=== PATIENT | male | born 1995 | race Two or more races ===

== ENCOUNTER 2021-10-26 14:16 | Emergency (ER) | payer OTHER, SELFPAY ==
[2021-10-26 14:30] VITALS: BP 118/80; PULSE 98; RESP 18; TEMP 36.8; O2SAT 99; BMI 25.0
--- NOTE | 2021-10-26 15:49 | ED.DENTAL ---
HPI - Dental/Oral General Chief complaint: Dental/Oral Stated complaint: Dental pain Time Seen by Provider: 10/26/21 15:22 Source: patient Mode of arrival: ambulatory History of Present Illness HPI Narrative: 26-year-old male no significant past medical history presenting to the ED complaining of right lower was in to pain x2 days. Reports associated swelling. Denies fever, chills, drainage from area, difficulty/inability to swallow, ear pain, sore throat MD Complaint: tooth pain Onset (ago): day(s) Related Data Previous Rx's Medication Instructions Recorded amoxicillin 875 mg-potassium 1 tab PO Q12H 7 Days #14 tab 10/26/21 clavulanate 125 mg tablet (Augmentin) Allergies Allergy/AdvReac Type Severity Reaction Status Date / Time No Known Allergies Allergy Verified 10/26/21 14:30 Review of Systems Review of Systems: Constitutional: No Fever, No Chills ENT/Mouth: No Ear Pain, No Nasal Congestion, No Hoarseness, No sore throat, No Rhinorrhea, No Swallowing Difficulty, +dental pain Cardiovascular: No Chest Pain, No SOB Respiratory: No Cough Gastrointestinal: No Nausea, No Vomiting, No Diarrhea, No Constipation, No Abdominal pain Genitourinary: No Hematuria, No Urinary Incontinence, No Urgency, No Flank Pain Musculoskeletal: No joint pain, No Myalgias, No Joint Swelling Skin: No Skin Lesions, No rash Neuro: No Weakness, No Numbness, No Paresthesias Yes all other systems are reviewed and are negative [facility] Past Medical History Attestation statement: The following information was validated with the patient. Medical History Asthma Social History Social History Advance Directives: No Advance Directives Information Provided: Yes Physical Exam Vital Signs: Vital Signs: Last Vital Signs Temp 98.3 F 10/26/21 14:30 Pulse 98 10/26/21 14:30 Resp 18 10/26/21 14:30 BP 118/80 10/26/21 14:30 Pulse Ox 99 10/26/21 14:30 BMI result Body Mass Index 25.0 Const: General: cooperative, healthy appearing and no acute distress Orientation/consciousness: patient oriented x3 Limitations: no limitations HENMT: Other: + right lower 3rd molar with abscess with +fluctuation. No induration. No evidence of cellulitis. No drainage Head: Yes normal to inspection Ears: hearing grossly normal bilaterally, external ears normal, TM's normal bilaterally and mastoids normal General nose exam: Normal external nose present Face and sinus: Yes normal facial exam Mouth: Normal oral and palatal mucosa present Throat: Yes posterior oropharynx normal, Yes tonsils normal, Yes uvula midline and No abnormal tonsil Eyes: General: appearance normal, both eyes and all related structures EOM: EOMs intact bilaterally Neck: Neck: Yes normal visual inspection, Yes trachea midline and Yes supple Resp: Effort & Inspection: normal respiratory effort and no stridor Auscultation: clear to auscultation bilaterally, no rales, no rhonchi and no wheezes Cardio: Rate: regular rate Heart sounds: S1 normal heart sound present and S2 normal heart sound present Skin: Rashes: no rashes Wounds: no wounds Neuro: General: patient oriented x3 Gait exam (Neuro): Normal gait present Extrem: General: Yes normal to inspection Course Course Course Narrative: -abscess aspirated with needle. No remaining fluctuance. Patient reports symptomatic improvement. Given 1st dose of Augmentin in the ED. Discussed need to follow-up with dentist, he verbalized understanding feel safe for discharge MDM - Dental/Oral MDM Narrative Medical decision making narrative: 26-year-old male no significant past medical history presenting to the ED complaining of right lower was in to pain x2 days. On exam vital signs stable, NAD/well-appearing, physical exam above consistent with right posterior molar gingival abscess. Plan: I&D, p.o. antibiotics, dental follow-up Differential Diagnosis Differential diagnosis: Likely gingival abscess and dental abscess Medical Records Attestation: I reviewed the patient's medical records. Lab Data Attestation: I reviewed the patient's lab results. Procedures Abscess I/D Site: oral Side (if applicable): right Local Anesthetic: lidocaine 1% Amount of anesthesia used (mL): 0.5 Technique: needle aspiration Sent for culture/gram staining?: No Irrigation: No Packing used?: none Discharge Plan Discharge Clinical Impression: Gingival abscess Patient Disposition: Home, Self-Care Instructions: Periodontal Disease (DC) Additional Instructions: Your gingival abscess was drained today in the emergency department, take Augmentin which is an oral antibiotic as prescribed Please follow-up with her dentist Take Tylenol Motrin at home for pain and swelling If symptoms persist or worsen, you develop fever, constant or unbearing pain please return to the ED Prescriptions: New amoxicillin-pot clavulanate [Augmentin] 875-125 mg tablet 1 tab PO Q12H 7 Days Qty: 14 RF: 0 Referrals: Rod Worley [Dentist] - 2 days Jose Knight DMD [Dentist] - 2 days
[2021-10-26] MEDS: Lidocaine HCl 1 % MPF 5 ML VIAL SUBCUT (16:05)
[2021-10-26] MEDS: Amoxicillin/Potassium Clav 875 MG TABLET PO (16:23)
== END 2021-10-26 16:58 | disposition home or self-care (01) ==
PROVIDERS: Emergency Provider Emergency Medicine; PCP Internal Medicine
DX: K05.319 Chronic periodontitis, localized, unspecified severity (principal)
CPT/HCPCS: 41800; 99283; 99284

== ENCOUNTER 2025-09-07 12:54 | Inpatient (IN) | payer OTHER, SELFPAY ==
[2025-09-07 13:01] VITALS: BP 124/82; PULSE 86; RESP 14; O2SAT 98; BMI 28.1
--- NOTE | 2025-09-07 13:07 | MHC.EDTECH ---
Patient was changed into crisis attire, security present, pt is calm and cooperative, belongings list completed, and locked in the POD locker #6
[2025-09-07 13:17] VITALS: BP 116/79; PULSE 78; RESP 16; TEMP 36.4; O2SAT 100
[2025-09-07 13:33] LABS: MANUAL DIFF FLAG NO
[2025-09-07 13:36] LABS: Appearance Urine Cloudy; Glucose Urine UA Negative (Negative); PH 6.0 (5.0-9.0); Specific Gravity - Urine 1.015 (1.005-1.025)
[2025-09-07 13:38] LABS: Hematocrit 42.3 % (42.0-52.0); Hemoglobin 13.4 g/dl (14.0-18.0); Imm Gran Abs Auto 0.02 X10*3/uL (0.00-0.03); Imm Gran Pct Auto 0.4 % (0.0-0.4); Lymphocytes Absolute Auto 0.9 X10*3/uL (1.2-4.9); Mean Corpuscular HGB Conc 31.7 g/dl (31.0-36.0); Mean Corpuscular Hemoglobin 28.3 pg (27.0-33.0); Mean Corpuscular Volume 89.4 fL (80.0-98.0); NRBC Abs Auto 0.000 X10*3/uL (0.0-0.012); NRBC Pct Auto 0.0 /100WBC (0.0-0.2); Platelet Count 284 X10*3/uL (160-400); Red Blood Count 4.73 X10*6/uL (4.60-5.80); White Blood Count 5.7 X10*3/uL (4.8-10.8)
[2025-09-07 13:56] LABS: Cannabinoid Screen Urine POSITIVE (Not Detect)
[2025-09-07 14:00] LABS: Alanine Aminotransferase 12 U/L (0-40); Albumin Level 4.9 g/dL (3.5-5.0); Alkaline Phosphatase 59 U/L (39-117); Anion Gap 11 (12-20); Aspartate Amino Transferase 22 U/L (5-37); Blood Urea Nitrogen 14 mg/dL (9-16); Calcium 9.4 mg/dL (8.4-10.2); Carbon Dioxide 28 mmol/L (22-29); Chloride 108 mmol/L (96-108); Creatinine Clr Calc Pharmacy 158.0; Estimated Glomerular Filt Rate > 60; Potassium 4.0 mmol/L (3.3-5.1); Sodium 143 mmol/L (135-145); Total Protein 7.1 g/dL (6.5-8.0)
--- NOTE | 2025-09-07 14:11 | ED_ITS ---
HPI - Psych General Chief Complaint: Psychiatric Symptoms Stated Complaint: SI X1W, W/PLAN TO JUMP [place],PICKED UP IN [place] Time Seen by Provider: 09/07/25 13:21 Source: patient and RN notes reviewed Mode of arrival: ambulatory Limitations: no limitations History of Present Illness ED Provider: Anni Szymanski PA-C HPI Narrative: This is a 30-year-old male who presents emergency department with concerns of suicidal ideation. Patient states he has been stressed with financial burdens lately and he has had thoughts of harming himself. He has a plan to jump into the [employer] or drive himself [place]. He states that [place] his [place]. He was assessed by [facility] in the community and was placed on a section 12. Denies history of psychiatric admissions in the past. He has a history of asthma, no other medical problems. She denies any. No fevers, chills, chest pain, shortness of breath, abdominal pain, nausea, vomiting or diarrhea. Denies any homicidal ideation. No alcohol or tobacco use. He does endorse marijuana use, otherwise no other drug use. No other complaints or concerns at this time. MD complaint: suicidal ideation and feels depressed History of same: No Relieving factors: none Exacerbating factors: none Context: significant life stressor Associated psychiatric symptoms: depression Treatments prior to arrival: placed on mental health hold If self harm: admits thoughts of self harm and has plan Details of plan: Jump in the [facility] Related Data Home Medications ?Medication ?Instructions ?Recorded ?Confirmed No Known Home Meds 09/07/25 09/07/25 Allergies Allergy/AdvReac Type Severity Reaction Status Date / Time No Known Allergies Allergy Verified 09/07/25 13:06 Review of Systems 2 Review of Systems: Constitutional : No Fever, No Chills ENT/Mouth : No sore throat, No Rhinorrhea Eyes: No Eye Pain, No Swelling, No Redness Cardiovascular : No Chest Pain, No SOB Respiratory : No Cough, No Sputum Gastrointestinal : No Nausea, No Vomiting, No Diarrhea, No abdominal Pain Genitourinary : No Dysuria, No Hematuria Musculoskeletal : No joint pain, No Myalgias, No Joint Swelling Skin : No Skin Lesions Neuro : No Weakness, No Numbness, No Headache All other systems reviewed and are negative Yes all other systems are reviewed and are negative Constitutional: Constitutional: Reports as per [facility] Past Medical History Medical History (Updated 09/09/25 @ 17:30 by John Winston MD) JORY (generalized anxiety disorder) Asthma Social History Social History Household Members: Other Household Members Other:: brother Housing: Apartment Do you presently have visiting nurse or other home services: No Unable to assess alcohol history related to: Refusing to respond Patient Tobacco Use Status: Former Tobacco user Smoked in Last 30 Days: No Use of substances other than those prescribed or required for medical reasons: No Currently Displaying Signs/Symptoms of Drug Intoxication Withdrawal: No Advance Directives: No Advance Directives Information Provided: Yes Do you have thoughts of harming others: None Do you have a plan to hurt others: No Plan Recently lost weight without trying: Unsure How much weight loss: Unsure Eating poorly because of decreased appetite: Yes Nutrition screen score: 5 Nutrition Risks: No Nutritional Risk Poor oral hygiene: No service: No Sexual orientation: Straight/Heterosexual Physical Exam 2 Vital Signs: Vital Signs: Last Vital Signs Temp 97.4 F 09/14/25 08:00 Pulse 77 09/14/25 08:00 Resp 16 09/14/25 08:00 BP 117/67 09/14/25 08:00 Pulse Ox 98 09/14/25 08:00 O2 Del Method Room Air 09/14/25 08:00 BMI result Body Mass Index 28.1 Const: General: cooperative, comfortable and no acute distress O rientation/consciousness: patient oriented x3 Limitations: no limitations HEENT: Head: Yes normal to inspection, Yes normocephalic and Yes atraumatic Ears: hearing grossly normal bilaterally General nose exam: Normal external nose present Face and sinus: Yes normal facial exam Mouth: Normal oral and palatal mucosa present, oropharynx normal and moist mucous membranes Throat: Yes posterior oropharynx normal Eyes: General: appearance normal, both eyes and all related structures E yelids: Yes eyelids normal Conjunctivae: conjunctivae normal Sclerae: s clerae normal Pupils: Equal, round and reactive pupils present EOM: EOMs intact bilaterally Neck: Neck: Yes normal visual inspection, Yes full ROM and Yes no lymphadenopathy Lymphatic: no lymphadenopathy noted Chest: Chest palpation & inspection: normal inspection of the chest Resp: Effort & Inspection: normal respiratory effort and able to speak in complete sentences Auscultation: clear to auscultation bilaterally, no crackles, no rales, no rhonchi and no wheezes Cardio: Rate: regular rate Rhythm: regular rhythm Heart sounds: S1 normal heart sound present and S2 normal heart sound present GI: Inspection: Yes normal to inspection Skin: General skin exam: no rashes or lesions noted Trauma: no lacerations or abrasions Wounds: no wounds Neuro: General: patient oriented x3 and moves all extremities Cranial nerves: Yes Equal, round and reactive pupils present Extrem: General: Yes normal to inspection Right upper extremity: normal to inspection Left upper extremity: normal to inspection Right lower extremity: normal to inspection Left lower extremity: normal to inspection Course Reevaluation(s) Reevaluation #1: Time: 06:56 Date: 09/08/25 Provider: Alex Godoy MD Patient in physician observation for psychiatric evaluation.? No acute events reported overnight. No current complaints. VS stable.? Patient is in bed search status/pending CARE team evaluation. Will continue to monitor. Reevaluation #2: 11/08/2025 11:00 patient will be admitted to the psychiatric unit this will end the ED observation status Medications Administered Generic Name Dose Route Start Last Admin Trade Name Freq PRN Reason Stop Dose Admin Bupropion HCl 150 mg 09/09/25 09:00 09/14/25 08:32 Bupropion Hcl Xl 150 Mg Tab.Er.24h PO 150 mg DAILY GUZMAN Administration Guanfacine HCl 1 mg 09/09/25 16:20 09/14/25 08:32 Guanfacine Hcl Er 1 Mg Tab.Er.24h PO 1 mg DAILY GUZMAN Administration Hydroxyzine HCl 25 mg 09/08/25 11:28 09/13/25 11:53 Hydroxyzine Hcl 25 Mg Tablet PO 25 mg Q6H PRN Administration mild anxiety Trazodone HCl 50 mg 09/08/25 11:28 09/13/25 23:45 Trazodone Hcl 50 Mg Tablet PO 50 mg BEDTIME MRX1 PRN Administration Insomnia Medical Decision Making Medical Decision Making MDM Narrative: This is a 30-year-old male who presents emergency department for evaluation of suicidal ideation with intent to jump into the [facility]. On arrival, patient is alert and oriented x4, he is speaking full sentences under no acute distress. Patient has no current complaints. He is on a section 12. Labs were obtained prior to my evaluation, he has no leukocytosis, stable H&H, chemistry with no significant electrolyte derangement. Slight elevation in T bili however patient is asymptomatic, with normal liver enzymes. Urine does not appear to be infectious. U tox positive for marijuana. Patient was seen by the care team and patient will be made a inpatient level of care bed search. Physician observation initiated. Differential Diagnosis Differential Diagnoses: The differential diagnosis associated with the presentation includes Suicidal ideation, homicidal ideation, depression, anxiety, substance abuse Admission/Observation Consideration of admission/observation: Escalation of care including admission/observation considered Lab Data MDM Lab Attestation statement: I reviewed the patient's lab results. See above 09/07/25 13:25 09/07/25 13:25 Labs: Lab Results 09/07/25 Range/Units 13:25 WBC 5.7 (4.8-10.8) X10*3/uL RBC 4.73 (4.60-5.80) X10*6/uL Hgb 13.4 L (14.0-18.0) g/dl Hct 42.3 (42.0-52.0) % MCV 89.4 (80.0-98.0) fL MCH 28.3 (27.0-33.0) pg MCHC 31.7 (31.0-36.0) g/dl RDW 13.2 (11.0-16.0) % Plt Count 284 (160-400) X10*3/uL MPV 9.3 L (9.4-12.4) fL Immature Gran % (Auto) 0.4 (0.0-0.4) % Neut % (Auto) 74.5 H (45-73) % Lymph % (Auto) 16.3 L (20-40) % [place] % (Auto) 7.4 (2-11) % Eos % (Auto) 0.9 (0-4) % Baso % (Auto) 0.5 (0-2) % Lymph # (Auto) 0.9 L (1.2-4.9) X10*3/uL [place] # (Auto) 0.4 (0.1-1.2) X10*3/uL Eos # (Auto) 0.1 (0.0-0.4) X10*3/uL Baso # (Auto) 0.0 (0.0-0.2) X10*3/uL Abs Immat Gran (auto) 0.02 (0.00-0.03) X10*3/uL Absolute Neuts (auto) 4.2 (2.0-8.3) x10*3/uL Absolute Nucleated RBC 0.000 (0.0-0.012) X10*3/uL Nucleated RBC % (auto) 0.0 (0.0-0.2) /100WBC Sodium 143 (135-145) mmol/L Potassium 4.0 (3.3-5.1) mmol/L Chloride 108 (96-108) mmol/L Carbon Dioxide 28 (22-29) mmol/L Anion Gap 11 L (12-20) BUN 14 (9-16) mg/dL Creatinine 0.75 (0.5-1.4) mg/dL Estim Creat Clear Calc 158.0 Estimated GFR > 60 Random Glucose 102 (60-115) mg/dL Calcium 9.4 (8.4-10.2) mg/dL Total Bilirubin 1.7 H (0.0-1.0) mg/dL AST 22 (5-37) U/L ALT 12 (0-40) U/L Alkaline Phosphatase 59 (39-117) U/L Total Protein 7.1 (6.5-8.0) g/dL Albumin 4.9 (3.5-5.0) g/dL Urine Color Yellow Urine Appearance Cloudy Urine pH 6.0 (5.0-9.0) Ur Specific [place] 1.015 (1.005-1.025) Urine Protein Negative (Neg-Trace) mg/dL Urine Glucose (UA) Negative (Negative) mg/dL Urine Ketones Negative (Negative) mg/dL Urine Blood Negative (Negative) Urine Nitrite Negative (Negative) Ur Leukocyte Esterase Negative (Negative) Urine Opiates Screen Not Detected (Not Detect) Ur Buprenorphine Scrn Not Detected (Not Detect) ng/mL Ur Oxycodone Screen Not Detected (Not Detect) ng/mL Urine Methadone Screen Not Detected (Not Detect) ng/mL Urine Fentanyl Screen Not Detected (Not Detect) Ur Barbiturates Screen Not Detected (Not Detect) Ur Phencyclidine Scrn Not Detected (Not Detect) Ur Amphetamines Screen Not Detected (Not Detect) U Benzodiazepines Scrn Not Detected (Not Detect) Urine Cocaine Screen Not Detected (Not Detect) U Marijuana (THC) Screen POSITIVE H (Not Detect) Ethyl Alcohol < 10 mg/dL Radiology Impression Discussion of test interpretation with radiology: I have reviewed the radiologist's reading. External Record Review External record reviewed: Inpatient record, Office record, Outpatient record, Prior outpatient labs, Prior outpatient radiology, Primary care record and Outside ED record Discharge Plan Discharge Clinical Impression: Suicidal ideation Patient Disposition: Admitted As Inpatient Interventions: Admission Worksheet (ED) Last Done: 09/08/25 11:55 Discharge Date/Time: 09/08/25 12:03
--- OUTSIDE RECORDS SUMMARY | 2025-09-07 17:36 | XMS_ITS | Encounter Summary ---
Author Organization [employer] Address [address] [place] [address] Care Team Providers Care Spanish Speaking Nanny Name Role Phone All Platt MD Primary Care Provider [phone] Encounter Details Date Type Department Care Team (Late st Contact Info) Description 08/29/2025 Results Follow-Up Adult Medicine [address] [phone] Waleska Byrnes NP [address] [place], [place] Social History Tobacco Use Types Packs/Day Years Used Date Smoking Tobacco: Never Smokeless Tobacco: Never Alcohol Use Standard Drinks/Week Comments Yes 0 (1 standard drink = 0.6 oz pur e alcohol) Sex and Gender Information Value Date Recorded Sex Assigned at Male 07/08/2025 3:11 PM EDT Legal Sex Male 4:47 AM EST Gender Identity Male 07/08/2025 3:11 PM EDT Sexual Orientation Straight 07/08/2025 3: 11 PM EDT documented as of this encounter Plan of Treatment Not on file documented as of this encounter Visit Diagnoses Not on filedocumented in this encounter Care Teams Spanish Speaking Nanny Relationship Specialty Start Date End Date All Platt MD [address] [place], [place] PCP - General Internal Medicine 01/22/19 documented as of this encounter
--- OUTSIDE RECORDS SUMMARY | 2025-09-07 17:36 | XMS_ITS | Clinical Summary ---
Author Organization [address] Address [address] [place] [phone] Phone Care Team Providers Care Product Applications Scientist Name Role Phone All Platt MD Primary Care Provider [phone] Allergies No known active allergies Medications albuterol HFA (PROAIR HFA ; PROVENTIL HFA ; VENTOLIN HFA) 90 mcg/actuation inhaler Inhale 2 puffs by mouth every 6 (six) hours if needed for wheezing. 6.7 g 1 07/13/2025 Active Active Problems Problem Noted Date Diagnosed Date Syncope 03/04/2023 Overview (11/11/2024): Syncope with hospitalization at [facility] in January 2023. 8-second pause when having IV placed in the ER. Echocardiogram unremarkable. Twelve-lead ECG sinus bradycardia with a short CT interval but no preexcitation. Ambulatory loop recorder monitoring showing sinus arrhythmia with periods of sinus tachycardia and sinus bradycardia. Last Assessment & Plan: This 27-year-old male appears to have autonomic dysfunction with a syncopal episode that was clearly vasovagal in origin. I do not see any evidence of structural heart disease or arrhythmic syndromes that would place him at high risk. This appears to be autonomic dysfunction with a vasovagal syncopal component. His orthostatics are consistent with postural orthostatic tachycardia syndrome I suggest that he continue to maintain good hydration and increase his salt intake. While I would consider pharmacologic suppression of his higher heart rates, he does have alternating periods of sinus bradycardia and I would be concerned about placing him on a beta- jonnathan. There is no clear indication for pacemaker given the lack of recurrent symptoms. I went over tilt training techniques and the signs of a prodrome to react to to avoid further syncope. If he has additional episodes I will do a formal tilt table test and/or EP study. ADHD (attention deficit hyperactivity disorder) 01/16/2014 Overview (11/11/2024): Has been on Concerta and Metadate (wt loss) Switched from Focalin to straterra summer 201201/17/14 straterra decreased to 40 mg too shy on 60 mg Asthma, mild intermittent 01/16/2014 Overview (11/11/2024): Has been on flovent last time used 2007 Albuterol prn Mood disorder ([facility] V24) 01/16/2014 Overview (11/11/2024): Suicidal episode srping 2012 (aunt ) Encounters Date Type Department Care Team Description 08/29/2025 Results Follow-Up Adult Medicine [address] [phone] Waleska Byrnes NP 08/26/2025 2:00 PM EDT Ancillary Procedure [facility] Cardiology [facility] [address] [phone] Palpitation; Chest pain, unspecified type 08/16/2025 Telephone Adult Medicine [address] [phone] All Platt MD 08/09/2025 Results Follow-Up Adult Medicine [address] [phone] Waleska Byrnes NP 08/05/2025 1:00 PM EDT Ancillary Procedure [facility] Cardiology [facility] [address] [place] [phone] Chest pain, unspecified type; Palpitation 07/20/2025 Telephone Adult Medicine [address] [phone] Waleska Byrnes NP 07/15/2025 8:36 AM EDT - 07/15/2025 11:59 PM EDT Hospital Encounter Radiology Department [address] [phone] Syncope, unspecified syncope type Discharge Disposition: Home or Self Care 07/13/2025 1:30 PM EDT Office Visit Adult [address] [phone] Waleska Byrnes NP Other chest pain (Primary Dx); Mild intermittent asthma, unspecified whether complicated; Syncope, unspecified syncope type 07/08/2025 Telephone Adult [address] [phone] All Platt MD from Last 3 Months Immunizations Immunization Administration Dates Next Due DTaP (Infanrix) 6wks to less than 7yo ,02/15/1998,05/05/1997,01/13,1996 [id number]-FBP-TIS (Pentacel) 2mo to less than 5yo 02/15/1998,05/05/1997,01/13/1997,10/25 HPV, Quadrivalent 09/23/2014,02/08/2013,01/27/20 12 Hepatitis A Pediatric (Havri x; Vaqta) 12mo to less than 19yo 10/11/2009,08/05/2008 Hepatitis B Pediatric (Enger ix B; Recombivax HB) to less than 20 yo 05/05/1997,01/13/1997,1996 IPV Inactivated polio (Ipol) 6wks and older 02/27/2001,05/05/1997,01/13/1997,10/25 Influenza trivalent, 0.5mL, preservative free (Fluarix; FluLaval; Fluzone) ages 6mo and older (Afluria) 3 years and older 09/23/2014 Influenza trivalent, with pr eservative (Fluzone; Afluria) 6mo and older 08/31/2013 MMR, measles mumps and rubel la Live (Priorix; M-M-R II) 12mo and older 02/27/2001,11/23/1997 Meningococcal MCV4P 03/22/2014,01/27/2012 Pneumococcal polysaccharide 23 valent (Pneumovax 23) 2yo and older 01/27/2019 Tdap Tetanus diptheria acell ular pertussis (Boostrix; Adacel) 7yo and older 01/27/2019,08/05/2008 Varicella live (Varivax) 12m o and older 02/08/2013,11/23/1997 Surgical History Surgery Date Site/Laterality Comments OTHER SURGICAL HISTORY PROCEDURE: DENIES PREVIOUS SURGERY Family History Medical History Relation Name Comments Diabetes Father Relation Name Status Comments Brother 1 Alive Hemant Milian Brother 2 Alive Chan Jasmine Brother 3 Alive Rakesh Jasmine Brother 4 Alive Klaus Beltran, foster brother Brother 5 Alive Mark Rodriguez, fo ster brother Father Alive Otilio Beltran Mother Social History Tobacco Use Types Packs/Day Years Used Date Smoking Tobacco: Never Smokeless Tobacco: Never Tobacco Cessation:Counseling Given: Not Answered Alcohol Use Standard Drinks/Week Comments Yes 0 (1 standard drink = 0.6 oz pur e alcohol) Sex and Gender Information Value Date Recorded Sex Assigned at Male 07/08/2025 3:11 PM EDT Legal Sex Male 4:47 AM EST Gender Identity Male 07/08/2025 3:11 PM EDT Sexual Orientation Straight 07/08/2025 3: 11 PM EDT Obstetrics History Last Filed Vital Signs Vital Sign Reading Time Taken Comments Blood Pressure 113/78 08/26/2025 1:53 PM EDT Pulse 98 07/13/2025 1:29 PM EDT Temperature 36.4 C (97.5 F) 07/13/2025 1:29 PM EDT Respiratory Rate 14 07/13/2025 1:29 PM EDT Oxygen Saturation 99% 07/13/2025 1:29 PM EDT Inhaled Oxygen Concentration - - Weight 57.6 kg (127 lb) 08/26/2025 1:53 PM EDT Height 170.2 cm (5' 7 ) 08/26/2025 1:53 PM EDT Body Mass Index 19.89 08/26/2025 1:53 PM EDT Plan of Treatment Health Maintenance Due Date Last Done Comments Pneumococcal Vaccine: Pediatrics (0 to 5 Years) and At-Risk Patients (6 to 49 Years) (2 of 2 - PCV) 01/28/2020 01/27/2019 HIV Screening 10/13/2022 Hepatitis C Screening 10/13/2022 Social Influencers of Health Screening 10/13/2022 Depression Screening 11/10/2024 COVID-19 Vaccine (1 - season) 2025 Influenza Vaccine (#1) 2025 09/23/2014, 2012 DTaP,Tdap,and Td Vaccines (8 - Td or Tdap) 01/27/2029 01/27/2019, 08/05/2008, 02/27/2001, Additional history exists Cholesterol Screening (Lipid Panel) 07/13/2030 07/13/2025, 03/07/2017 RSV Immunization Adult Patients (1 - 1-dose 75+ series) 2071 Hepatitis B Vaccines Completed 05/05/1997, 01/13/1997, 1996 HIB Vaccines Completed 02/15/1998, 04/11, 01/13/1997, Additional history exists IPV Vaccines Completed 02/27/2001, 06/1998, 05/05/1997, Additional history exists MMR Vaccines Completed 02/27/2001, 11/23/1997 Hepatitis A Vaccines Completed 10/11/2009, 08/05/20 Varicella Vaccines Completed 02/08/2013, 11/23/1997 Meningococcal ACWY Vaccine Completed 03/22/2014, HPV Vaccines Completed 09/23/2014, 11/2012, 01/27/2012 Meningococcal B Vaccine Aged Out No l onger eligible based on patient's age to complete this topic RSV Immunization Patients Under 20 months Aged Out No longer eligible based on patient's age to complete this topic Procedures Procedure Name Priority Date/Time Associated Diagnosis Comments STRESS TEST ONLY EXERCISE Routine 08/26/2025 2:08 PM EDT Palpitation Chest pain, unspecified type CARDIAC HOLTER MONITOR (REPORT GENERATED IN HOUSE) Routine 08/05/2025 1:07 PM EDT Chest pain, unspecified type Palpitation VAS US DUPLEX CAROTID BILATERAL Routine 07/15/2025 9:46 AM EDT Syncope, unspecified syncope type CBC WITH AUTO DIFFERENTIAL Routine 07/13/2025 2:09 PM EDT Other chest pain THYROID STIMULATING HORMONE WITH REFLEX TO FREE T4 AND FREE T3 Routine 07/13/2025 2:09 PM EDT Other chest pain LIPID PANEL WITH REFLEX TO DIRECT LDL Routine 07/13/2025 2:09 PM EDT Other chest pain CBC AND DIFFERENTIAL Routine 07/13/2025 2:09 PM EDT Other chest pain COMPREHENSIVE METABOLIC PANEL Routine 07/13/2025 2:09 PM EDT Other chest pain ECG 12-LEAD TRACING ONLY Routine 07/13/2025 1:32 PM EDT Other chest pain from Last 3 Months Results * Exercise stress test (08/26/2025 2:08 PM EDT) Exercise/inject ion duration (min) 9 CV STRESS ONLY Exercise/inject ion duration (sec) 31 CV STRESS ONLY Peak SBP 140 mmHg CV STRESS ONLY Peak DBP 80 mmHg CV STRESS ONLY Peak HR 169 bpm CV STRESS ONLY Baseline HR 87 bpm CV STRES S ONLY Baseline SBP 113 mmHg CV STRE SS ONLY Baseline DBP 78 mmHg CV STRE SS ONLY Estimated workload 11.6 METS CV STRESS ONLY Percent HR 88 % CV STRESS ONLY Rate Pressure Product 23,660.0 mmHg*bpm CV STRESS ONLY Target HR 162 bpm CV STRESS ONLY Angina Index 0 CV STRE SS ONLY Max HR Percent 88 % CV ST RESS ONLY ST Depression (mm) 0 mm CV STRESS ONLY O2 sat rest 98 % CV STRES S ONLY Anatomical Region Laterality Modality Cardiac Diagnost ic 08/26/2025 1:59 PM EDT 08/26/2025 2:36 PM EDT Narrative 08/26/2025 5:45 PM EDT Normal exercise EKG stress test at a target heart rate and adequate functional capacity. Patient reported no symptoms during the stress test. Exercise capacity was average. Normal blood pressure response. Stress Findings A Armen protocol stress test was performed. Overall, the patient's exercise capacity was average. Total stress time was 9 min and 31 sec. The patient experienced no angina during the test. The test was stopped because the patient experienced fatigue. The patient requested the test to be stopped. The patient's hemodynamic response was adequate for diagnosis. Blood pressure demonstrated a normal response. Heart rate demonstrated a normal response. The patient reported no symptoms during the stress test. ECG 30 yo male with a history of asthma and no significant cardiac risk factors referred for CP. The ECG shows normal sinus rhythm. There were no arrhythmias during stress. There is no ST segment changes during stress. There were no arrhythmias during recovery. The result of the stress ECG was negative for ischemia. us Waleska Byrnes NP CV STRESS PROCEDURES Final Re sult * CARDIAC HOLTER MONITOR (REPORT GENERATED IN HOUSE) (08/05/2025 1:07 PM EDT) Anatomical Region Laterality Modality Cardiac Diagnost ic Narrative 08/09/2025 2:49 PM EDT [facility] DIAGNOSTIC TESTING DEPARTMENT [address] [place] [address], [address] [address] TEL: FAX: Type of test: 48 hour Holter Monitor Date of test: 08/08/25 Ordering provider: Waleska Byrnes NP Reason for Test: Palpitations PVCA Hands Parter Findings: 1: The predominant rhythm was Normal Sinus Rhythm with brief periods of Sinus Tachycardia and Sinus Arrhythmia. 2: Heart rate range was 39- 145 bpm with an average of 79 bpm. Total time in Sinus Tachycardia was 9 hrs 37 mins. 3: Occasional PACs with rare atrial pairs, atrial bigeminy, and two 4-beat atrial runs. One PVC. 4: No pauses noted. Longest R-R 1.6 sec. 5: Diary returned with episode of lightheadedness, SOB when bending over. EKG at that time showed Normal Sinus Rhythm with Sinus Arrhythmia. Impression: Normal sinus rhythm with an average heart rate of 79 bpm. There were frequent episodes of sinus tachycardia and occasional premature atrial complexes for very short atrial runs. No atrial fibrillation. No bradycardia or pauses. us Waleska Byrnes NP CV CARDIAC SERVICES PROCEDURE S Final Result * Vascular US duplex carotid bilateral (07/15/2025 9:46 AM EDT) Anatomical Region Laterality Modality Vascular, Abdomen Ultrasound 07/15/2025 12:0 1 PM EDT Impressions 07/15/2025 12:05 PM EDT No evidence of significant internal carotid stenoses. Patent vertebral arteries. POS - [id number] -------- FINAL REPORT -------- Dictated By: Keyonna Suazo Dictated Date: 07/15/2025 12:01 ET Assigned Physician: Keyonna Suazo Reviewed and Electronically Signed By: Keyonna Suazo Signed Date: 07/15/2025 12:05 ET Workstation ID: [id number] Transcribed By: Self Edit Transcribed Date: 07/15/2025 12:01 ET Narrative 07/15/2025 12:05 PM EDT EXAM: Ultrasound extracranial arteries. HISTORY: Syncope COMPARISON: None CAROTID ULTRASOUND FINDINGS: RIGHT: Peak external carotid artery: 93 cm/sec Peak vertebral: 29 cm/sec and antegrade Carotid artery morphology: No plaquing detected. Peak systolic and diastolic velocity common carotid artery: 155/33 cm/sec Peak systolic and diastolic velocity internal carotid artery: 135/41 cm/sec Normal ICA/CCA peak systolic ratio. LEFT: Peak external carotid artery: 70 cm/sec Peak vertebral: 70 cm/sec and antegrade Carotid artery morphology: No plaquing detected. Peak systolic and diastolic velocity common carotid artery: 183/35 cm/sec Peak systolic and diastolic velocity internal carotid artery: 114/37 cm/sec Normal ICA/CCA peak systolic ratio. Any stenosis measurement is relative to the distal ICA diameters. Procedure Note Keyonna Suazo MD - 07/15/2025 EXAM: Ultrasound extracranial arteries. HISTORY: Syncope COMPARISON: None CAROTID ULTRASOUND FINDINGS: RIGHT: Peak external carotid artery: 93 cm/sec Peak vertebral: 29 cm/sec and antegrade Carotid artery morphology: No plaquing detected. Peak systolic and diastolic velocity common carotid artery: 155/33cm/sec Peak systolic and diastolic velocity internal carotid artery: 135/41cm/sec Normal ICA/CCA peak systolic ratio. LEFT: Peak external carotid artery: 70 cm/sec Peak vertebral: 70 cm/sec and antegrade Carotid artery morphology: No plaquing detected. Peak systolic and diastolic velocity common carotid artery: 183/35cm/sec Peak systolic and diastolic velocity internal carotid artery: 114/37cm/sec Normal ICA/CCA peak systolic ratio. Any stenosis measurement is relative to the distal ICA diameters. IMPRESSION: No evidence of significant internal carotid stenoses. Patent vertebralarteries. POS - [id number] -------- FINAL REPORT -------- Dictated By: Keyonna Suazo Dictated Date: 07/15/2025 12:01 ET Assigned Physician: Keyonna Suazo Reviewed and Electronically Signed By: Keyonna Suazo Signed Date: 07/15/2025 12:05 ET Workstation ID: [id number] Transcribed By: Self Edit Transcribed Date: 07/15/2025 12:01 ET Waleska Byrnes NP CV VASCULAR PROCEDURES Final Result * Thyroid stimulating hormone with reflex to free t4 and free t3 (07/13/2025 2:09 PM EDT) Pathologist [facility] TSH 0.85 0.40 - 4.00 mcIU/mL LAB CHEMISTRY METHOD 07/13/2025 6:[address] [facility] Blood Venous blood specimen / Unknown Venipuncture / Unknown 07/13/2025 2:09 PM EDT 07/13/2025 2:09 PM EDT Waleska Byrnes APPLICATION SECURITY DEVELOPER LAB BLOOD ORDERABLES Final Re sult [facility] [address] [place] [address], [place] [phone] * Lipid panel with reflex to direct LDL (07/13/2025 2:09 PM EDT) Cholesterol 152 0 - 200 mg/dL LAB CHEMISTRY METHOD 07/13/2025 5:[address] [facility] Triglycerides 31 0 - 150 mg/dL LAB CHEMISTRY METHOD 07/13/2025 5:[address] [facility] HDL 86 >=40 mg/dL LAB CHEMISTRY METHOD 07/13/2025 5:[address] [facility] LDL Calculated 60 0 - 100 mg/dL LAB CHEMISTRY METHOD 07/13/2025 5:[address] [facility] Comment:Estimated LDL Calcul ated using equation: Total cholesterol - HDL cholesterol - (Triglycerides/5) VLDL Cholesterol Bhupinder 6.2 mg/dL LAB CHEMISTRY METHOD 07/13/2025 5:[address] [facility] Non HDL Chol. (LDL+VLDL) 66 <145 mg/dL LAB CHEMISTRY METHOD 07/13/2025 5:[address] [facility] Chol/HDL Ratio 1.8 0.0 - 4.4 LAB CHEMISTRY METHOD 07/13/2025 5:[address] [facility] Blood Venous blood specimen / Unknown Venipuncture / Unknown 07/13/2025 2:09 PM EDT 07/13/2025 2:09 PM EDT us Waleska Byrnes APPLICATION SECURITY DEVELOPER LAB BLOOD ORDERABLES Final Re sult [facility] [address] [place] [address], [place] [phone] * (ABNORMAL) CBC auto differential (07/13/2025 2:09 PM EDT) WBC 6.2 4.8 - 10.8 K/[facility] LAB HEMETOLOGY METHOD 07/13/2025 5:[address] [facility] RBC 4.80 4.50 - 5.50 M/mcL LAB HEMETOLOGY METHOD 07/13/2025 5:[address] [facility] Hemoglobin 13.6 13.5 - 17.5 g/dL LAB HEMETOLOGY METHOD 07/13/2025 5:07 PM [facility] Hematocrit 43.5 42.0 - 54.0 % LAB HEMETOLOGY METHOD 07/13/2025 5:07 PM [facility] MCV 91.4 79.0 - 98.0 FL LAB HEMETOLOGY METHOD 07/13/2025 5:07 PM [facility] MCH 28.6 27.0 - 32.0 pcg LAB HEMETOLOGY METHOD 07/13/2025 5:07 PM [facility] MCHC 31.3(L) 32.0 - 37.0 g/dL LAB HEMETOLOGY METHOD 07/13/2025 5:07 PM [facility] RDW 13.2 11.0 - 15.0 % LAB HEMETOLOGY METHOD 07/13/2025 5:07 PM [facility] Platelets 314 130 - 400 K/mcL LAB HEMETOLOGY METHOD 07/13/2025 5:07 PM [facility] MPV 10.8 7.0 - 11.0 FL LAB HEMETOLOGY METHOD 07/13/2025 5:07 PM [facility] NRBC 0.0 <1.0 % LAB HEMETOLOGY METHOD 07/13/2025 5:07 PM [facility] NRBC Absolute 0.00 <0.10 K/mcL LAB HEMETOLOGY METHOD 07/13/2025 5:07 PM [facility] Neutrophils Relative 76.7 % LAB HEMETOLOGY METHOD 07/13/2025 5:07 PM [facility] Lymphocytes Relative 14.4 % LAB HEMETOLOGY METHOD 07/13/2025 5:07 PM [facility] Monocytes Relative 7.0 % LAB HEMETOLOGY METHOD 07/13/2025 5:[address] [facility] Eosinophils Relative 0.8 % LAB HEMETOLOGY METHOD 07/13/2025 5:[address] [facility] Basophils Relative 0.8 % [facility] Immature Granulocytes Relative 0.3 % LAB HEMETOLOGY METHOD 07/13/2025 5:[address] [facility] Neutrophils Absolute 4.74 1.50 - 7.00 K/mcL LAB HEMETOLOGY METHOD 07/13/2025 5:[address] [facility] Lymphocytes Absolute 0.89(L) 1.00 - 5.00 K/mcL LAB [facility]EM[facility]OLOGY [facility] Monocytes Absolute 0.43 0.20 - 1.00 K/mcL LAB HEMETOLOGY METHOD 07/13/2025 5:[address] [facility] Eosinophils Absolute 0.05 0.00 - 0.50 K/mcL LAB HEMETOLOGY METHOD 07/13/2025 5:[address] [facility] Basophils Absolute 0.05 0.00 - 0.20 K/mcL LAB HEMETOLOGY METHOD 07/13/2025 5:[address] [facility] Immature Granulocytes Absolute 0.02 0.00 - 0.03 K/mcL LAB HEMETOLOGY METHOD 07/13/2025 5:[address] [facility] Blood Venous blood specimen / Unknown Venipuncture / Unknown 07/13/2025 2:09 PM EDT 07/13/2025 2:09 PM EDT us Waleska Byrnes APPLICATION SECURITY DEVELOPER LAB BLOOD ORDERABLES Final Re sult [facility] [address] [place] [address], * Comprehensive metabolic panel (07/13/2025 2:09 PM EDT) Sodium 141 133 - 145 mmol/L LAB CHEMISTRY METHOD 07/13/2025 5:16 PM [facility] Potassium 4.5 3.5 - 5.5 mmol/L LAB CHEMISTRY METHOD 07/13/2025 5:16 PM [facility] Chloride 106 96 - 110 mmol/L LAB CHEMISTRY METHOD 07/13/2025 5:16 PM [facility] CO2 31 21 - 32 mmol/L LAB CHEMISTRY METHOD 07/13/2025 5:16 PM [facility] Anion Gap 4 3 - 11 LAB CHEMISTRY METHOD 07/13/2025 5:16 PM [facility] Glucose 88 70 - 100 mg/dL LAB CHEMISTRY METHOD 07/13/2025 5:16 PM [facility] BUN 18 5 - 25 mg/dL LAB CHEMISTRY METHOD 07/13/2025 5:16 PM [facility] Creatinine 0.85 0.70 - 1.30 mg/dL LAB CHEMISTRY METHOD 07/13/2025 5:16 PM [facility] eGFR 121 >=60 mL/min/1. 73m2 LAB CHEMISTRY METHOD 07/13/2025 5:16 PM [facility] Comment:Calculation based on the Chronic Kidney Disease Epidemiology Collaboration (CKD-EPI) equation refit without adjustment for race. BUN/Creatinine Ratio 21.2 LAB CHEMISTRY METHOD 07/13/2025 5:16 PM [facility] Calcium 9.2 8.5 - 10.5 mg/dL LAB CHEMISTRY METHOD 07/13/2025 5:16 PM [facility] AST (SGOT) 16 10 - 42 unit/L LAB CHEMISTRY METHOD 07/13/2025 5:16 PM [facility] ALT (SGPT) 17 10 - 60 unit/L LAB CHEMISTRY METHOD 07/13/2025 5:[address] [facility] Alkaline Phosphatase 80 42 - 121 unit/L LAB CHEMISTRY METHOD 07/13/2025 5:[address] [facility] Total Protein 7.2 6.0 - 8.0 g/dL LAB CHEMISTRY METHOD 07/13/2025 5:[address] [facility] Albumin 4.4 3.2 - 5.0 g/dL LAB CHEMISTRY METHOD 07/13/2025 5:[address] [facility] Total Bilirubin 1.2 0.0 - 1.4 mg/dL LAB CHEMISTRY METHOD 07/13/2025 5:[address] [facility] Blood Venous blood specimen / Unknown Venipuncture / Unknown 07/13/2025 2:09 PM EDT 07/13/2025 2:09 PM EDT Walesak Byrnes APPLICATION SECURITY DEVELOPER LAB BLOOD ORDERABLES Final Re sult [facility] [address] [place] [address], * ECG 12 lead Tracing Only (07/13/2025 1:32 PM EDT) Waleska Byrnes APPLICATION SECURITY DEVELOPER ECG ORDERABLES Final Result from Last 3 Months Insurance [facility] [employer] [facility] Care Teams Product Applications Scientist Relationship Specialty Start Date End Date All Platt MD [address] [place] [address] [phone] PCP - General Internal Medicine 01/22/19
--- OUTSIDE RECORDS SUMMARY | 2025-09-07 17:36 | XMS_ITS ---
[facility] Name [facility] Organization Unknown Care Team Organization Name Specialty Phone Email Start Date End Da te [facility] TREVER GIPSON Primary Care 09/17/2022
--- OUTSIDE RECORDS SUMMARY | 2025-09-07 17:36 | XMS_ITS | Encounter Summary ---
Author Organization [employer] Address [address] [place] [address] Care Team Providers Care Carbonation Tester Name Role Phone All Platt MD Primary Care Provider [phone] Reason for Referral * Cardiac Stress Testing (Routine) - Closed Specialty Diagnoses / Procedures Referred By Contac t Referred To Contact Cardiology Diagnoses Palpitation Chest pain, unspecified type Procedures Exercise stress test Waleska Byrnes NP [address] [place] [address] Phone: tel: fax: [facility] Referral ID Status Reason Start Date Expiration Date Visits Re quested Visits Authorized [id number] Closed 08/17/2025 08/17/2026 1 1 Encounter Details Date Type Department Care Team (Late st Contact Info) Description 08/09/2025 Results Follow-Up Adult Medicine [facility] [address] [place] [phone] Waleska Byrnes NP [address] [place], [place] Social History Tobacco Use Types Packs/Day [...] PM EDT documented as of this encounter Progress Notes * Waleska Byrnes NP - 08/17/2025 3:04 PM EDT I have ordered echo for further evaluation. * Vida Heath MA - 08/16/2025 2:42 PM EDT Please advise. documented in this encounter Plan of Treatment Not on file documented as of this encounter Results * Exercise stress test (08/26/2025 2:08 [...] NP CV STRESS PROCEDURES Final Re sult documented in this encounter Visit Diagnoses Diagnosis Palpitation- Primary Palpitations Chest pain, unspecified type Palpitation Palpitations Chest pain, unspecified type documented in this encounter Care Teams Carbonation Tester Relationship Specialty Start Date End Date All Platt MD [address] [place] [phone] PCP - General Internal Medicine 01/22/19 documented as of this encounter
[2025-09-07 22:17] VITALS: BP 115/75; PULSE 76; RESP 16; TEMP 36.9; O2SAT 98
--- NOTE | 2025-09-08 | ECG_ITS ---
Test Reason : rule out prolonged QTC Blood Pressure : */* mmHG Vent. Rate : 76 BPM Atrial Rate : 76 BPM P-R Int : 108 ms QRS Dur : 84 ms QT Int : 396 ms P-R-T Axes : 38 52 17 degrees QTcB Int : 445 ms Sinus rhythm with sinus arrhythmia with short SC Otherwise normal ECG No previous ECGs available Referred By: Alex Godoy Electronically Signed By: JAIMEE BENSON
[2025-09-08 06:27] VITALS: BP 106/69; PULSE 55; RESP 16; TEMP 36.6; O2SAT 100
--- NOTE | 2025-09-08 07:28 | PHA.MEDREC ---
Addendum entered by Gail Chan RPh 09/08/25 07:37: Reviewed by Rey Original Note: Pharmacy Consult ? Medication Reconciliation Pharmacy reviewed med rec done by nursing. No Known Home Meds confirmed, claims matches.
--- NOTE | 2025-09-08 11:31 | PC.NURSE ---
Patient remains sleeping intermittently throughout shift, no apparent distress is noted at this time
[2025-09-08 12:43] VITALS: BP 119/85; PULSE 88; RESP 18; TEMP 36.9; O2SAT 98
[2025-09-08 12:45] VITALS: BMI 17.6
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
[2025-09-08 19:59] VITALS: BP 109/64; PULSE 68; RESP 18; TEMP 37.1; O2SAT 98
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
[2025-09-09 08:00] VITALS: BP 122/79; PULSE 67; RESP 16; TEMP 35.9; O2SAT 100
--- NOTE | 2025-09-09 08:20 | HO.PM.IMCN ---
History of Present Illness Data of Consult Service Date: 09/09/25 Primary Care Provider: All Platt III, MD [facility] Reason for consult: Medical consult 30-year-old male with past medical history of major depressive disorder, asthma, ADHD, presented to the emergency room with suicide ideation. Initial workup in the ED revealed no leukocytosis, stable H&H, chemistry with no significant electrolyte derangement. Slight elevation in T bili however patient is asymptomatic, with normal liver enzymes. Urine does not appear to be infectious. U tox positive for marijuana. On exam patient has no medical complaints. Review of Systems Review of Systems: Denies any shortness of breath, chest pain, headaches, dysuria, abdominal pain or discomfort, nausea, vomiting or diarrhea. Denies fever or chills. [facility] Medical History Asthma Social History Household Members: Other Household Members Other:: brother Housing: Apartment Do you presently have visiting nurse or other home services: No Unable to assess alcohol history related to: Refusing to respond Patient Tobacco Use Status: Former Tobacco user Smoked in Last 30 Days: No Use of substances other than those prescribed or required for medical reasons: No Currently Displaying Signs/Symptoms of Drug Intoxication Withdrawal: No Advance Directives: No Advance Directives Information Provided: Yes Do you have thoughts of harming others: None Do you have a plan to hurt others: No Plan Recently lost weight without trying: Unsure How much weight loss: Unsure Eating poorly because of decreased appetite: Yes Nutrition screen score: 5 Nutrition Risks: No Nutritional Risk Poor oral hygiene: No service: No Sexual orientation: Straight/Heterosexual Meds Allergies Allergy/AdvReac Type Severity Reaction Status Date / Time No Known Allergies Allergy Verified 09/07/25 13:06 Active Medications: Current Medications Acetaminophen (Acetaminophen 325 Mg Tablet) 650 mg PO Q6H PRN PRN Reason: Headache/Pain, Scale 1-10 Al Hydroxide/Mg Hydroxide (Magnesium Hydrox/Alum Hydrox 30 Ml Oral.Susp) 30 ml PO Q6H PRN PRN Reason: Heartburn/Nausea Albuterol Sulfate (Albuterol Sulfate 90 Mcg 8 Gm Inhaler) 2 puff INHALE RQ4H PRN PRN Reason: SOB/Wheezing Bupropion HCl (Bupropion Hcl Xl 150 Mg Tab.Er.24h) 150 mg PO DAILY GUZMAN Hydroxyzine HCl (Hydroxyzine Hcl 25 Mg Tablet) 25 mg PO Q6H PRN PRN Reason: mild anxiety Last Admin: 09/08/25 17:37 Dose: 25 mg Magnesium Hydroxide (Milk Of Magnesia 30 Ml Oral.Susp) 30 ml PO DAILY PRN PRN Reason: Constipation Nicotine Polacrilex (Nicotine Polacrilex 2 Mg Gum) 4 mg BUCCAL Q2H PRN PRN Reason: Nicotine Cravings Olanzapine (Olanzapine 5 Mg Tablet) 5 mg PO Q4H PRN PRN Reason: agitation Trazodone HCl (Trazodone Hcl 50 Mg Tablet) 50 mg PO BEDTIME MRX1 PRN PRN Reason: Insomnia Last Admin: 09/08/25 20:44 Dose: 50 mg Home Medications ?Medication ?Instructions ?Recorded ?Confirmed ?Last Taken ?Type No Known Home Meds 09/07/25 09/07/25 Unknown History Physical Exam Vital Signs and Narrative: Vital Signs: Last Vital Signs Temp 96.6 F L 09/09/25 08:00 Pulse 67 09/09/25 08:00 Resp 16 09/09/25 08:00 BP 122/79 09/09/25 08:00 Pulse Ox 100 09/09/25 08:00 O2 Del Method Room Air 09/09/25 08:00 BMI result Body Mass Index 17.6 Alert and oriented X3, calm and cooperative. Answers questions. Neuro: CN II-X11 intact, no deficits, visual acuity intact EYES: PERRLA, EOM intact ENT: Hearing intact, MMM Cardiac: S1 S2 RRR, No ectopy Pulmonary: Lungs clear to auscultation, No increased WOB. Abdominal: BS active in all 4 quadrants, no guarding or tenderness MSK: Strength 5/5 upper and lower extremities : Deferred Extremities: No edema in lower extremities Psych: Mood stable, Quiet and cooperative. Skin: Warm and dry, Intact Results Labs 09/07/25 13:25 09/07/25 13:25 Labs: Laboratory Results - last 24 hr 09/09/25 07:32 Estimat Average Glucose 103 Hemoglobin A1c % 5.2 Assessment and Plan (1) Active asthma: Status: Acute Plan 30-year-old male presented to ED with suicide ideation past medical history as listed below, now admitted to inpatient psych for further stabilization and treatment. ADHD/MDD/suicidal ideation Treatment per psychiatric team Asthma Not on maintenance inhalers, no acute exacerbation. Albuterol as needed Thank you for allowing me to participate in the care of this patient. Will follow with you, please notify medical provider with any changes in condition or concerns.
[2025-09-09 08:26] LABS: Cholesterol 160 mg/dL (<200); HDL Cholesterol 62 mg/dL (>40); Triglycerides 64 mg/dL (<150)
[2025-09-09 08:35] LABS: Free T4 (Free Thyroxine) 1.13 ng/dL (0.71-1.85); Thyroid Stimulating Hormone 0.09 uIU/mL (0.32-4.0)
[2025-09-09 08:50] LABS: Folate 7.7 ng/mL (> or = 4.0); Vitamin B12 287 pg/mL (200-900)
[2025-09-09] MEDS: buPROPion HCl XL 150 MG TAB.ER.24H PO (09:09)
--- NOTE | 2025-09-09 09:44 | P.PNPSI_ITS ---
Subjective Subjective Date of Service: 09/09/25 Reason For Visit: depression Interim History: Met with patient; discussed with team ; reviewed chart Patient discussed anxiety and depression. He feels anxiety is most of the issue and he worries about various things throughout the day and even at night; his worries interfere with sleep and also interfere with daytime activities; sometimes his worries about various things will make him not feel like playing guitar. He feels that these worries have led to depression which he said has gotten worse with the past weeks to the point where he sad all the time, in bed, not eating much, calling out from work. This anxiety has also resulted in panic attacks that he was initially worried was chest pain but would emergency room visits ruled this out. Discussed medications at length. Patient has a history of ADHD but did not tolerate Focalin or Strattera; for now he agrees to start on Intuniv since it can also help with anxiety (reviewed risks/side effects). Patient was started on Wellbutrin; while Wellbutrin is not typically used when anxiety is the primary diagnosis patient said he felt more calm today and that maybe it did help with anxiety. He agrees to continue with this now. Mental Status Exam Mental Status Exam Narrative: Pt is alert and oriented; behavior is anxious, mostly isolating keeping himself but cooperative, friendly on approach; patient is not in distress; dressed in casual attire with unkempt hair, scruffy facial hair but adequate hygiene; mood is described as anxious.... Depressed and affect congruent, a little tearful; eye contact appropriate; Speech is normal rate, volume and prosody and not pressured; psychomotor retardation present; thought process is organized and goal directed; Thought content is on dealing with symptoms; otherwise pertinent to relevant topics and without any delusional content, paranoid ideations or grandiosity; denies any SI/HI. Denies AVH and there is no evidence of perceptual disturbance. Patients insight and judgment improving Diagnostics Vital Signs (24Hr): Vital Signs - 24 hr 09/08/25 12:43 09/08/25 19:59 09/09/25 08:00 Temperature 98.5 F 98.7 F 96.6 F L Pulse Rate 88 68 67 Respiratory Rate 18 18 16 Blood Pressure 119/85 109/64 122/79 Pulse Oximetry 98 98 100 Oxygen Delivery Method Room Air Room Air Room Air BMI result Body Mass Index 17.6 Labs 09/07/25 13:25 09/07/25 13:25 Labs: Laboratory Results - last 48 hr 09/07/25 09/09/25 13:25 07:32 WBC 5.7 RBC 4.73 Hgb 13.4 L Hct 42.3 MCV 89.4 MCH 28.3 MCHC 31.7 RDW 13.2 Plt Count 284 MPV 9.3 L Immature Gran % (Auto) 0.4 Neut % (Auto) 74.5 H Lymph % (Auto) 16.3 L [place] % (Auto) 7.4 Eos % (Auto) 0.9 Baso % (Auto) 0.5 Lymph # (Auto) 0.9 L [place] # (Auto) 0.4 Eos # (Auto) 0.1 Baso # (Auto) 0.0 Abs Immat Gran (auto) 0.02 Absolute Neuts (auto) 4.2 Absolute Nucleated RBC 0.000 Nucleated RBC % (auto) 0.0 Sodium 143 Potassium 4.0 Chloride 108 Carbon Dioxide 28 Anion Gap 11 L BUN 14 Creatinine 0.75 Estim Creat Clear Calc 158.0 Estimated GFR > 60 Random Glucose 102 Estimat Average Glucose 103 Hemoglobin A1c % 5.2 Calcium 9.4 Total Bilirubin 1.7 H AST 22 ALT 12 Alkaline Phosphatase 59 Total Protein 7.1 Albumin 4.9 Triglycerides 64 Cholesterol 160 LDL Cholesterol, Calc 86 HDL Cholesterol 62 Vitamin B12 287 Folate 7.7 TSH 0.09 L Free T4 1.13 Urine Color Yellow Urine Appearance Cloudy Urine pH 6.0 Ur Specific [place] 1.015 Urine Protein Negative Urine Glucose (UA) Negative Urine Ketones Negative Urine Blood Negative Urine Nitrite Negative Ur Leukocyte Esterase Negative Urine Opiates Screen Not Detected Ur Buprenorphine Scrn Not Detected Ur Oxycodone Screen Not Detected Urine Methadone Screen Not Detected Urine Fentanyl Screen Not Detected Ur Barbiturates Screen Not Detected Ur Phencyclidine Scrn Not Detected Ur Amphetamines Screen Not Detected U Benzodiazepines Scrn Not Detected Urine Cocaine Screen Not Detected U Marijuana (THC) Screen POSITIVE H Ethyl Alcohol < 10 Medications Medications Current Medications Acetaminophen (Acetaminophen 325 Mg Tablet) 650 mg PO Q6H PRN PRN Reason: Headache/Pain, Scale 1-10 Al Hydroxide/Mg Hydroxide (Magnesium Hydrox/Alum Hydrox 30 Ml Oral.Susp) 30 ml PO Q6H PRN PRN Reason: Heartburn/Nausea Albuterol Sulfate (Albuterol Sulfate 90 Mcg 8 Gm Inhaler) 2 puff INHALE RQ4H PRN PRN Reason: SOB/Wheezing Bupropion HCl (Bupropion Hcl Xl 150 Mg Tab.Er.24h) 150 mg PO DAILY GUZMAN Last Admin: 09/09/25 09:09 Dose: 150 mg Hydroxyzine HCl (Hydroxyzine Hcl 25 Mg Tablet) 25 mg PO Q6H PRN PRN Reason: mild anxiety Last Admin: 09/08/25 17:37 Dose: 25 mg Magnesium Hydroxide (Milk Of Magnesia 30 Ml Oral.Susp) 30 ml PO DAILY PRN PRN Reason: Constipation Nicotine Polacrilex (Nicotine Polacrilex 2 Mg Gum) 4 mg BUCCAL Q2H PRN PRN Reason: Nicotine Cravings Olanzapine (Olanzapine 5 Mg Tablet) 5 mg PO Q4H PRN PRN Reason: agitation Trazodone HCl (Trazodone Hcl 50 Mg Tablet) 50 mg PO BEDTIME MRX1 PRN PRN Reason: Insomnia Last Admin: 09/08/25 20:44 Dose: 50 mg Allergies Allergies Allergy/AdvReac Type Severity Reaction Status Date / Time No Known Allergies Allergy Verified 09/07/25 13:06 Assessment & Plan Assessment & Plan (1) MDD (major depressive disorder), recurrent episode, severe: Status: Acute Code(s): F33.2 - Major depressive disorder, recurrent severe without psychotic features (2) JORY (generalized anxiety disorder): Status: Acute Code(s): F41.1 - Generalized anxiety disorder (3) ADHD: Status: Acute Code(s): F90.9 - Attention-deficit hyperactivity disorder, unspecified type (4) Active asthma: Status: Acute Code(s): J45.909 - Unspecified asthma, uncomplicated Plan HPI: patient is a 30y.o with hx of ADHD, and asthma who was BIBA for SI. Patient sent suicidal texts to father stating that he is done with plans to jump off a bridge into the [place] river. Father contacted the police,requested a wellness check. He was found by emergency services in a [place], walking on a path leading to the river. Formulation/clinical reasoning: Increase in financial burden, living housing situation, and employment. Increase in depression anxiety, SI with plan to kill himself by getting to the river. No prior psychiatric diagnosis except for ADHD. Given the above information, patient could be benefit in restrictive environment for his safety, medication management, and refer patient to outpatient psychiatric services for aftercare Hospital course: 09/08/25: start on Wellbutrin XL 150mg daily for depression/anxiety/ADHD Other PRN available for anxiety and depression. Albuterol Q4hour PRN fo SOB/Wheezing. Patient may benefit from guanfacine/clonidine for anxiety for ADHD/impulsive behavior in the future during hospitalization. 09/09 Patient discussed anxiety and depression. He feels anxiety is most of the issue and he worries about various things throughout the day and even at night; his worries interfere with sleep and also interfere with daytime activities; sometimes his worries about various things will make him not feel like playing [employer]. He feels that these worries have led to depression which he said has gotten worse with the past weeks to the point where he sad all the time, in bed, not eating much, calling out from work. This anxiety has also resulted in panic attacks that he was initially worried was chest pain but would emergency room visits ruled this out. Discussed medications at length. Patient has a history of ADHD but did not tolerate Focalin or Strattera; for now he agrees to start on Intuniv since it can also help with anxiety (reviewed risks/side effects). Patient was started on Wellbutrin; while Wellbutrin is not typically used when anxiety is the primary diagnosis patient said he felt more calm today and that maybe it did help with anxiety. He agrees to continue with this now. Plan Admitted to [facility]. CV. Continue Wellbutrin XL 150 mg; consider titrating; if this aggravates anxiety will switch to Zoloft Start Intuniv 1 mg daily Work with treatment team to do collateral. No OP psychiatrist. Contact the hospitalist regarding hospitalist consultation on admission: pending. Trials of Strattera, and Focalin: side effects of agitation and poor appetite Low BMI, lost weight: will order ensure TID. Patient educated on: diagnosis, medication risk/benefits and therapeutic strategies Informed Consent: understands Reason for continued inpatient stay Substantial Risk for: rapid decompensation Time Spent With Patient Time: Total time managing care of this patient today ____ minutes.
[2025-09-09] MEDS: guanFACINE HCl ER 1 MG TAB.ER.24H PO (17:29)
[2025-09-09 20:25] VITALS: BP 126/72; PULSE 69; RESP 18; TEMP 36.5; O2SAT 99
[2025-09-10 08:30] VITALS: BP 106/57; PULSE 73; RESP 18; TEMP 36.1; O2SAT 97
[2025-09-10] MEDS: buPROPion HCl XL 150 MG TAB.ER.24H PO (09:06)
[2025-09-10] MEDS: guanFACINE HCl ER 1 MG TAB.ER.24H PO (09:06)
--- NOTE | 2025-09-10 09:41 | P.PNPSI_ITS ---
Subjective Subjective Date of Service: 09/10/25 Reason For Visit: depression Interim History: met with pt; discussed with team Patient reports that he is feeling better. He thinks the Intuniv is helping and that he is overall feeling more calm; anxiety is lower and no depression; had a good visit with his brother. Patient shared that he was able to read a book which normally his to distracted by ADD symptoms and thus he thinks Intuniv his helping with his ability to felt MSE: Pt is alert and oriented; behavior is cooperative, friendly and calm; patient is not in distress; dressed in hospital attire, hair pulled back, adequate hygiene; mood is described as better and affect congruent, more calm, brighter; eye contact appropriate; Speech is normal rate, volume and prosody and not pressured; some psychomotor retardation present; thought process is organized and goal directed; Thought content is on symptoms and treatment; no delusional ideations expressed; denies any SI/HI. Denies AVH and there is no evidence of perceptual disturbance. Patients insight and judgment improved Diagnostics Vital Signs (24Hr): Vital Signs - 24 hr 09/09/25 20:25 09/10/25 08:30 Temperature 97.7 F 96.9 F Pulse Rate 69 73 Respiratory Rate 18 18 Blood Pressure 126/72 106/57 L Pulse Oximetry 99 97 Oxygen Delivery Method Room Air Room Air BMI result Body Mass Index 17.6 Labs 09/07/25 13:25 09/07/25 13:25 Labs: Laboratory Results - last 48 hr 09/09/25 07:32 Estimat Average Glucose 103 Hemoglobin A1c % 5.2 Triglycerides 64 Cholesterol 160 LDL Cholesterol, Calc 86 HDL Cholesterol 62 Vitamin B12 287 Folate 7.7 TSH 0.09 L Free T4 1.13 Medications Medications Current Medications Acetaminophen (Acetaminophen 325 Mg Tablet) 650 mg PO Q6H PRN PRN Reason: Headache/Pain, Scale 1-10 Al Hydroxide/Mg Hydroxide (Magnesium Hydrox/Alum Hydrox 30 Ml Oral.Susp) 30 ml PO Q6H PRN PRN Reason: Heartburn/Nausea Albuterol Sulfate (Albuterol Sulfate 90 Mcg 8 Gm Inhaler) 2 puff INHALE RQ4H PRN PRN Reason: SOB/Wheezing Bupropion HCl (Bupropion Hcl Xl 150 Mg Tab.Er.24h) 150 mg PO DAILY GUZMAN Last Admin: 09/10/25 09:06 Dose: 150 mg Guanfacine HCl (Guanfacine Hcl Er 1 Mg Tab.Er.24h) 1 mg PO DAILY GUZMAN Last Admin: 09/10/25 09:06 Dose: 1 mg Hydroxyzine HCl (Hydroxyzine Hcl 25 Mg Tablet) 25 mg PO Q6H PRN PRN Reason: mild anxiety Last Admin: 09/08/25 17:37 Dose: 25 mg Magnesium Hydroxide (Milk Of Magnesia 30 Ml Oral.Susp) 30 ml PO DAILY PRN PRN Reason: Constipation Nicotine Polacrilex (Nicotine Polacrilex 2 Mg Gum) 4 mg BUCCAL Q2H PRN PRN Reason: Nicotine Cravings Trazodone HCl (Trazodone Hcl 50 Mg Tablet) 50 mg PO BEDTIME MRX1 PRN PRN Reason: Insomnia Last Admin: 09/08/25 20:44 Dose: 50 mg Allergies Allergies Allergy/AdvReac Type Severity Reaction Status Date / Time No Known Allergies Allergy Verified 09/07/25 13:06 Assessment & Plan Assessment & Plan (1) MDD (major depressive disorder), recurrent episode, severe: Status: Acute Code(s): F33.2 - Major depressive disorder, recurrent severe without psychotic features (2) JORY (generalized anxiety disorder): Status: Acute Code(s): F41.1 - Generalized anxiety disorder (3) ADHD: Status: Acute Code(s): F90.9 - Attention-deficit hyperactivity disorder, unspecified type (4) Active asthma: Status: Acute Code(s): J45.909 - Unspecified asthma, uncomplicated Plan HPI: patient is a 30y.o with hx of ADHD, and asthma who was BIBA for SI. Patient sent suicidal texts to father stating that he is done with plans to jump off a bridge into the [place] river. Father contacted the police,requested a wellness check. He was found by emergency services in [place], walking on a path leading to the river. Formulation/clinical reasoning: Increase in financial burden, living housing situation, and employment. Increase in depression anxiety, SI with plan to kill himself by getting to the river. No prior psychiatric diagnosis except for ADHD. Given the above information, patient could be benefit in restrictive environment for his safety, medication management, and refer patient to outpatient psychiatric services for aftercare Hospital course: 09/08/25: start on Wellbutrin XL 150mg daily for depression/anxiety/ADHD Other PRN available for anxiety and depression. Albuterol Q4hour PRN fo SOB/Wheezing. Patient may benefit from guanfacine/clonidine for anxiety for ADHD/impulsive behavior in the future during hospitalization. 09/09 Patient discussed anxiety and depression. He feels anxiety is most of the issue and he worries about various things throughout the day and even at night; his worries interfere with sleep and also interfere with daytime activities; sometimes his worries about various things will make him not feel like playing [employer]. He feels that these worries have led to depression which he said has gotten worse with the past weeks to the point where he sad all the time, in bed, not eating much, calling out from work. This anxiety has also resulted in panic attacks that he was initially worried was chest pain but would emergency room visits ruled this out. Discussed medications at length. Patient has a history of ADHD but did not tolerate Focalin or Strattera; for now he agrees to start on Intuniv since it can also help with anxiety (reviewed risks/side effects). Patient was started on Wellbutrin; while Wellbutrin is not typically used when anxiety is the primary diagnosis patient said he felt more calm today and that maybe it did help with anxiety. He agrees to continue with this now. 09/10 Patient reports that he is feeling better. He thinks the Intuniv is helping and that he is overall feeling more calm; anxiety is lower and no depression; had a good visit with his brother. Patient shared that he was able to read a book which normally his to distracted by ADD symptoms and thus he thinks Intuniv his helping with his ability to felt -continue current treatment for now Plan Admitted to [facility]. CV. Continue Wellbutrin XL 150 mg; consider titrating; if this aggravates anxiety will switch to Zoloft Continue Intuniv 1 mg daily Work with treatment team to do collateral. No OP psychiatrist. Contact the hospitalist regarding hospitalist consultation on admission: pending. Trials of Strattera, and Focalin: side effects of agitation and poor appetite Low BMI, lost weight: will order ensure TID. Patient educated on: diagnosis, medication risk/benefits and therapeutic strategies Informed Consent: understands Reason for continued inpatient stay Substantial Risk for: rapid decompensation Time Spent With Patient Time: Total time managing care of this patient today ____ minutes.
[2025-09-10 20:13] VITALS: BP 125/88; PULSE 85; RESP 18; TEMP 37.3; O2SAT 98
[2025-09-11 08:00] VITALS: BP 109/74; PULSE 106; RESP 18; TEMP 36.9; O2SAT 99
[2025-09-11] MEDS: buPROPion HCl XL 150 MG TAB.ER.24H PO (08:40)
[2025-09-11] MEDS: guanFACINE HCl ER 1 MG TAB.ER.24H PO (08:40)
--- NOTE | 2025-09-11 12:20 | HO.PSYCHPN ---
Subjective Subjective Date of Service: 09/11/25 Reason For Visit: depression Interim History: Met with patient; discussed with team Patient reports he remains feeling better, less anxiety, no depression and able to focus more. Some struggles with sleep but he thinks his discuss his roommate is distracting. Patient talked about wanting to move back with his father's and wanting to quit smoking cannabis. Asked for help to navigate this change MSE: Pt is alert and oriented; behavior is cooperative, friendly and calm; patient is not in distress; dressed in hospital attire, hair pulled back, adequate hygiene; mood is described as good and affect congruent, more calm, brighter; eye contact appropriate; Speech is normal rate, volume and prosody and not pressured; some psychomotor retardation present; thought process is organized and goal directed; Thought content is on symptoms and treatment; no delusional ideations expressed; denies any SI/HI. Denies AVH and there is no evidence of perceptual disturbance. Patients insight and judgment fair Diagnostics Vital Signs (24Hr): Vital Signs - 24 hr 09/10/25 20:13 09/11/25 08:00 Temperature 99.1 F 98.4 F Pulse Rate 85 106 H Respiratory Rate 18 18 Blood Pressure 125/88 109/74 Pulse Oximetry 98 99 Oxygen Delivery Method Room Air Room Air BMI result Body Mass Index 17.6 Labs 09/07/25 13:25 09/07/25 13:25 Medications Medications Current Medications Acetaminophen (Acetaminophen 325 Mg Tablet) 650 mg PO Q6H PRN PRN Reason: Headache/Pain, Scale 1-10 Al Hydroxide/Mg Hydroxide (Magnesium Hydrox/Alum Hydrox 30 Ml Oral.Susp) 30 ml PO Q6H PRN PRN Reason: Heartburn/Nausea Albuterol Sulfate (Albuterol Sulfate 90 Mcg 8 Gm Inhaler) 2 puff INHALE RQ4H PRN PRN Reason: SOB/Wheezing Bupropion HCl (Bupropion Hcl Xl 150 Mg Tab.Er.24h) 150 mg PO DAILY GUZMAN Last Admin: 09/11/25 08:40 Dose: 150 mg Guanfacine HCl (Guanfacine Hcl Er 1 Mg Tab.Er.24h) 1 mg PO DAILY GUZMAN Last Admin: 09/11/25 08:40 Dose: 1 mg Hydroxyzine HCl (Hydroxyzine Hcl 25 Mg Tablet) 25 mg PO Q6H PRN PRN Reason: mild anxiety Last Admin: 09/08/25 17:37 Dose: 25 mg Magnesium Hydroxide (Milk Of Magnesia 30 Ml Oral.Susp) 30 ml PO DAILY PRN PRN Reason: Constipation Nicotine Polacrilex (Nicotine Polacrilex 2 Mg Gum) 4 mg BUCCAL Q2H PRN PRN Reason: Nicotine Cravings Trazodone HCl (Trazodone Hcl 50 Mg Tablet) 50 mg PO BEDTIME MRX1 PRN PRN Reason: Insomnia Last Admin: 09/10/25 21:11 Dose: 50 mg Allergies Allergies Allergy/AdvReac Type Severity Reaction Status Date / Time No Known Allergies Allergy Verified 09/07/25 13:06 Assessment & Plan Assessment & Plan (1) MDD (major depressive disorder), recurrent episode, severe: Status: Acute Code(s): F33.2 - Major depressive disorder, recurrent severe without psychotic features (2) JORY (generalized anxiety disorder): Status: Acute Code(s): F41.1 - Generalized anxiety disorder (3) ADHD: Status: Acute Code(s): F90.9 - Attention-deficit hyperactivity disorder, unspecified type (4) Active asthma: Status: Acute Code(s): J45.909 - Unspecified asthma, uncomplicated Plan HPI: patient is a 30y.o with hx of ADHD, and asthma who was BIBA for SI. Patient sent suicidal texts to father stating that he is done with plans to jump off [place] bridge into the [place]. Father contacted the police,requested a wellness check. He was found by emergency services [place] leading to the [place]. Formulation/clinical reasoning: Increase in financial burden, living housing situation, and employment. Increase in depression anxiety, SI with plan to kill himself by getting to the river. No prior psychiatric diagnosis except for ADHD. Given the above information, patient could be benefit in restrictive environment for his safety, medication management, and refer patient to outpatient psychiatric services for aftercare Hospital course: 09/08/25: start on Wellbutrin XL 150mg daily for depression/anxiety/ADHD Other PRN available for anxiety and depression. Albuterol Q4hour PRN fo SOB/Wheezing. Patient may benefit from guanfacine/clonidine for anxiety for ADHD/impulsive behavior in the future during hospitalization. 09/09 Patient discussed anxiety and depression. He feels anxiety is most of the issue and he worries about various things throughout the day and even at night; his worries interfere with sleep and also interfere with daytime activities; sometimes his worries about various things will make him not feel like playing guitar. He feels that these worries have led to depression which he said has gotten worse with the past weeks to the point where he sad all the time, in bed, not eating much, calling out from work. This anxiety has also resulted in panic attacks that he was initially worried was chest pain but would emergency room visits ruled this out. Discussed medications at length. Patient has a history of ADHD but did not tolerate Focalin or Strattera; for now he agrees to start on Intuniv since it can also help with anxiety (reviewed risks/side effects). Patient was started on Wellbutrin; while Wellbutrin is not typically used when anxiety is the primary diagnosis patient said he felt more calm today and that maybe it did help with anxiety. He agrees to continue with this now. 09/10 Patient reports that he is feeling better. He thinks the Intuniv is helping and that he is overall feeling more calm; anxiety is lower and no depression; had a good visit with his brother. Patient shared that he was able to read a book which normally his to distracted by ADD symptoms and thus he thinks Intuniv his helping with his ability to felt -continue current treatment for now 09/11 Patient reports he remains feeling better, less anxiety, no depression and able to focus more. Some struggles with sleep but he thinks his discuss his roommate is distracting. Patient talked about wanting to move back with his father's and wanting to quit smoking cannabis. Asked for help to navigate this change Plan Admitted to [facility]. CV. Continue Wellbutrin XL 150 mg; consider titrating; if this aggravates anxiety will switch to Zoloft Continue Intuniv 1 mg daily Work with treatment team to do collateral. No OP psychiatrist. Contact the hospitalist regarding hospitalist consultation on admission: pending. Trials of Strattera, and Focalin: side effects of agitation and poor appetite Low BMI, lost weight: will order ensure TID. Patient educated on: diagnosis, medication risk/benefits, substance abuse and therapeutic strategies Informed Consent: understands Reason for continued inpatient stay Substantial Risk for: stable for discharge Time Spent With Patient Time: Total time managing care of this patient today ____ minutes.
[2025-09-11 20:00] VITALS: BP 100/59; PULSE 93; RESP 15; TEMP 37.3; O2SAT 98
[2025-09-12] MEDS: buPROPion HCl XL 150 MG TAB.ER.24H PO (08:27)
[2025-09-12] MEDS: guanFACINE HCl ER 1 MG TAB.ER.24H PO (08:27)
[2025-09-12 08:30] VITALS: BP 129/60; PULSE 84; RESP 16; TEMP 36.5; O2SAT 98
[2025-09-12 20:00] VITALS: BP 106/74; PULSE 90; TEMP 36.8; O2SAT 98
--- NOTE | 2025-09-12 22:18 | P.PNPSI_ITS ---
Subjective Subjective Date of Service: 09/12/25 Reason For Visit: depression Interim History: Met with patient; discussed with team Patient continues to report that he is good. He is not sure about disposition saying has not talked to his father if he can return there; however patient says he is talking with his brother who will in turn appeal to his father to let patient return. Patient feels that medications are adequate; he expresses thanks for helping him feel comfortable to try medications. Mental Status Exam Mental Status Exam Narrative: Pt is alert and oriented; behavior is a little bit isolative, but getting more social cooperative, friendly and calm; patient is not in distress; dressed in hospital attire, jacob with adequate hygiene and grooming; mood is described as good and affect congruent, brighter and more calm; eye contact appropriate; Speech is normal rate, volume and prosody and not pressured; no psychomotor agitation/retardation present; thought process is organized and goal directed; Thought content is on tx; otherwise pertinent to relevant topics and without any delusional content, paranoid ideations or grandiosity; denies any SI/HI. Denies AVH and there is no evidence of perceptual disturbance. Patients insight and judgment appear intact. Diagnostics Vital Signs (24Hr): Vital Signs - 24 hr 09/12/25 08:30 09/12/25 20:00 Temperature 97.7 F 98.2 F Pulse Rate 84 90 Respiratory Rate 16 Blood Pressure 129/60 106/74 Pulse Oximetry 98 98 Oxygen Delivery Method Room Air Room Air BMI result Body Mass Index 17.6 Labs 09/07/25 13:25 09/07/25 13:25 Medications Medications Current Medications Acetaminophen (Acetaminophen 325 Mg Tablet) 650 mg PO Q6H PRN PRN Reason: Headache/Pain, Scale 1-10 Al Hydroxide/Mg Hydroxide (Magnesium Hydrox/Alum Hydrox 30 Ml Oral.Susp) 30 ml PO Q6H PRN PRN Reason: Heartburn/Nausea Albuterol Sulfate (Albuterol Sulfate 90 Mcg 8 Gm Inhaler) 2 puff INHALE RQ4H PRN PRN Reason: SOB/Wheezing Bupropion HCl (Bupropion Hcl Xl 150 Mg Tab.Er.24h) 150 mg PO DAILY [facility] Last Admin: 09/12/25 08:27 Dose: 150 mg Guanfacine HCl (Guanfacine Hcl Er 1 Mg Tab.Er.24h) 1 mg PO DAILY [facility] Last Admin: 09/12/25 08:27 Dose: 1 mg Hydroxyzine HCl (Hydroxyzine Hcl 25 Mg Tablet) 25 mg PO Q6H PRN PRN Reason: mild anxiety Last Admin: 09/12/25 12:24 Dose: 25 mg Magnesium Hydroxide (Milk Of Magnesia 30 Ml Oral.Susp) 30 ml PO DAILY PRN PRN Reason: Constipation Nicotine Polacrilex (Nicotine Polacrilex 2 Mg Gum) 4 mg BUCCAL Q2H PRN PRN Reason: Nicotine Cravings Trazodone HCl (Trazodone Hcl 50 Mg Tablet) 50 mg PO BEDTIME MRX1 PRN PRN Reason: Insomnia Last Admin: 09/10/25 21:11 Dose: 50 mg Allergies Allergies Allergy/AdvReac Type Severity Reaction Status Date / Time No Known Allergies Allergy Verified 09/07/25 13:06 Assessment & Plan Assessment & Plan (1) MDD (major depressive disorder), recurrent episode, severe: Status: Acute Code(s): F33.2 - Major depressive disorder, recurrent severe without psychotic features (2) JORY (generalized anxiety disorder): Status: Acute Code(s): F41.1 - Generalized anxiety disorder (3) ADHD: Status: Acute Code(s): F90.9 - Attention-deficit hyperactivity disorder, unspecified type (4) Active asthma: Status: Acute Code(s): J45.909 - Unspecified asthma, uncomplicated Plan HPI: patient is a 30y.o with hx of ADHD, and asthma who was BIBA for SI. Patient sent suicidal texts to father stating that he is done with plans to jump off a bridge into the [place] river. Father contacted the police,requested a wellness check. He was found by emergency services in a [place], walking on a path leading to the river. Formulation/clinical reasoning: Increase in financial burden, living housing situation, and employment. Increase in depression anxiety, SI with plan to kill himself by getting to the river. No prior psychiatric diagnosis except for ADHD. Given the above information, patient could be benefit in restrictive environment for his safety, medication management, and refer patient to outpatient psychiatric services for aftercare Hospital course: 09/08/25: start on Wellbutrin XL 150mg daily for depression/anxiety/ADHD Other PRN available for anxiety and depression. Albuterol Q4hour PRN fo SOB/Wheezing. Patient may benefit from guanfacine/clonidine for anxiety for ADHD/impulsive behavior in the future during hospitalization. 09/09 Patient discussed anxiety and depression. He feels anxiety is most of the issue and he worries about various things throughout the day and even at night; his worries interfere with sleep and also interfere with daytime activities; sometimes his worries about various things will make him not feel like playing guitar. He feels that these worries have led to depression which he said has gotten worse with the past weeks to the point where he sad all the time, in bed, not eating much, calling out from work. This anxiety has also resulted in panic attacks that he was initially worried was chest pain but would emergency room visits ruled this out. Discussed medications at length. Patient has a history of ADHD but did not tolerate Focalin or Strattera; for now he agrees to start on Intuniv since it can also help with anxiety (reviewed risks/side effects). Patient was started on Wellbutrin; while Wellbutrin is not typically used when anxiety is the primary diagnosis patient said he felt more calm today and that maybe it did help with anxiety. He agrees to continue with this now. 09/10 Patient reports that he is feeling better. He thinks the Intuniv is helping and that he is overall feeling more calm; anxiety is lower and no depression; had a good visit with his brother. Patient shared that he was able to read a book which normally his to distracted by ADD symptoms and thus he thinks Intuniv his helping with his ability to felt -continue current treatment for now 09/11 Patient reports he remains feeling better, less anxiety, no depression and able to focus more. Some struggles with sleep but he thinks his discuss his roommate is distracting. Patient talked about wanting to move back with his father's and wanting to quit smoking cannabis. Asked for help to navigate this change 09/12 Patient continues to report that he is good. He is not sure about disposition saying has not talked to his father if he can return there; however patient says he is talking with his brother who will in turn appeal to his father to let patient return. Patient feels that medications are adequate; he expresses thanks for helping him feel comfortable to try medications. Plan Admitted to [facility]. CV. Continue Wellbutrin XL 150 mg; consider titrating; if this aggravates anxiety will switch to Zoloft Continue Intuniv 1 mg daily Work with treatment team to do collateral. No OP psychiatrist. Contact the hospitalist regarding hospitalist consultation on admission: pending. Trials of Strattera, and Focalin: side effects of agitation and poor appetite Low BMI, lost weight: will order ensure TID. Patient educated on: diagnosis, medication risk/benefits and therapeutic strategies Informed Consent: understands Reason for continued inpatient stay Substantial Risk for: stable for discharge and med/psych decompensation Time Spent With Patient Time: Total time managing care of this patient today ____ minutes.
[2025-09-13] MEDS: buPROPion HCl XL 150 MG TAB.ER.24H PO (08:31)
[2025-09-13] MEDS: guanFACINE HCl ER 1 MG TAB.ER.24H PO (08:31)
[2025-09-13 08:32] VITALS: BP 108/55; PULSE 84; RESP 18; TEMP 37.1; O2SAT 100
--- NOTE | 2025-09-13 17:57 | HO.PSYCHPN ---
Subjective Subjective Date of Service: 09/13/25 Reason For Visit: depression Interim History: Met with patient; discussed with team Patient remains doing well, says anxiety and depression seem to be resolved. Patient said he is now pretty sure he can move back with his father and will have definitive answer for tomorrow. Patient again expresses gratitude. More social and attending groups Mental Status Exam Mental Status Exam Narrative: Pt is alert and oriented; behavior is more social; remains cooperative, friendly and calm; patient is not in distress; dressed in hospital attire, jacob with adequate hygiene and grooming; mood is described as good and affect congruent, brighter and more calm; eye contact appropriate; Speech is normal rate, volume and prosody and not pressured; no psychomotor agitation/retardation present; thought process is organized and goal directed; Thought content is on tx; otherwise pertinent to relevant topics and without any delusional content, paranoid ideations or grandiosity; denies any SI/HI. Denies AVH and there is no evidence of perceptual disturbance. Patients insight and judgment appear intact. Diagnostics Vital Signs (24Hr): Vital Signs - 24 hr 09/12/25 20:00 09/13/25 08:32 Temperature 98.2 F 98.7 F Pulse Rate 90 84 Respiratory Rate 18 Blood Pressure 106/74 108/55 L Pulse Oximetry 98 100 Oxygen Delivery Method Room Air Room Air BMI result Body Mass Index 17.6 Labs 09/07/25 13:25 09/07/25 13:25 Medications Medications Current Medications Acetaminophen (Acetaminophen 325 Mg Tablet) 650 mg PO Q6H PRN PRN Reason: Headache/Pain, Scale 1-10 Al Hydroxide/Mg Hydroxide (Magnesium Hydrox/Alum Hydrox 30 Ml Oral.Susp) 30 ml PO Q6H PRN PRN Reason: Heartburn/Nausea Albuterol Sulfate (Albuterol Sulfate 90 Mcg 8 Gm Inhaler) 2 puff INHALE RQ4H PRN PRN Reason: SOB/Wheezing Bupropion HCl (Bupropion Hcl Xl 150 Mg Tab.Er.24h) 150 mg PO DAILY [facility] Last Admin: 09/13/25 08:31 Dose: 150 mg Guanfacine HCl (Guanfacine Hcl Er 1 Mg Tab.Er.24h) 1 mg PO DAILY [facility] Last Admin: 09/13/25 08:31 Dose: 1 mg Hydroxyzine HCl (Hydroxyzine Hcl 25 Mg Tablet) 25 mg PO Q6H PRN PRN Reason: mild anxiety Last Admin: 09/13/25 11:53 Dose: 25 mg Magnesium Hydroxide (Milk Of Magnesia 30 Ml Oral.Susp) 30 ml PO DAILY PRN PRN Reason: Constipation Nicotine Polacrilex (Nicotine Polacrilex 2 Mg Gum) 4 mg BUCCAL Q2H PRN PRN Reason: Nicotine Cravings Trazodone HCl (Trazodone Hcl 50 Mg Tablet) 50 mg PO BEDTIME MRX1 PRN PRN Reason: Insomnia Last Admin: 09/10/25 21:11 Dose: 50 mg Allergies Allergies Allergy/AdvReac Type Severity Reaction Status Date / Time No Known Allergies Allergy Verified 09/07/25 13:06 Assessment & Plan Assessment & Plan (1) MDD (major depressive disorder), recurrent episode, severe: Status: Acute Code(s): F33.2 - Major depressive disorder, recurrent severe without psychotic features (2) JORY (generalized anxiety disorder): Status: Acute Code(s): F41.1 - Generalized anxiety disorder (3) ADHD: Status: Acute Code(s): F90.9 - Attention-deficit hyperactivity disorder, unspecified type (4) Active asthma: Status: Acute Code(s): J45.909 - Unspecified asthma, uncomplicated Plan HPI: patient is a 30y.o with hx of ADHD, and asthma who was BIBA for SI. Patient sent suicidal texts to father stating that he is done with plans to jump off a bridge into the [place] river. Father contacted the police,requested a wellness check. He was found by emergency services [place], [place] on [place] leading to the river. Formulation/clinical reasoning: Increase in financial burden, living housing situation, and employment. Increase in depression anxiety, SI with plan to kill himself by getting to the river. No prior psychiatric diagnosis except for ADHD. Given the above information, patient could be benefit in restrictive environment for his safety, medication management, and refer patient to outpatient psychiatric services for aftercare Hospital course: 09/08/25: start on Wellbutrin XL 150mg daily for depression/anxiety/ADHD Other PRN available for anxiety and depression. Albuterol Q4hour PRN fo SOB/Wheezing. Patient may benefit from guanfacine/clonidine for anxiety for ADHD/impulsive behavior in the future during hospitalization. 09/09 Patient discussed anxiety and depression. He feels anxiety is most of the issue and he worries about various things throughout the day and even at night; his worries interfere with sleep and also interfere with daytime activities; sometimes his worries about various things will make him not feel like playing guitar. He feels that these worries have led to depression which he said has gotten worse with the past weeks to the point where he sad all the time, in bed, not eating much, calling out from work. This anxiety has also resulted in panic attacks that he was initially worried was chest pain but would emergency room visits ruled this out. Discussed medications at length. Patient has a history of ADHD but did not tolerate Focalin or Strattera; for now he agrees to start on Intuniv since it can also help with anxiety (reviewed risks/side effects). Patient was started on Wellbutrin; while Wellbutrin is not typically used when anxiety is the primary diagnosis patient said he felt more calm today and that maybe it did help with anxiety. He agrees to continue with this now. 09/10 Patient reports that he is feeling better. He thinks the Intuniv is helping and that he is overall feeling more calm; anxiety is lower and no depression; had a good visit with his brother. Patient shared that he was able to read a book which normally his to distracted by ADD symptoms and thus he thinks Intuniv his helping with his ability to felt -continue current treatment for now 09/11 Patient reports he remains feeling better, less anxiety, no depression and able to focus more. Some struggles with sleep but he thinks his discuss his roommate is distracting. Patient talked about wanting to move back with his father's and wanting to quit smoking cannabis. Asked for help to navigate this change 09/12 Patient continues to report that he is good. He is not sure about disposition saying has not talked to his father if he can return there; however patient says he is talking with his brother who will in turn appeal to his father to let patient return. Patient feels that medications are adequate; he expresses thanks for helping him feel comfortable to try medications. 09/13 patient feels that medications remained adequate, does not want any changes; dispo planning Plan Admitted to [facility]. CV. Continue Wellbutrin XL 150 mg; consider titrating; if this aggravates anxiety will switch to Zoloft Continue Intuniv 1 mg daily Work with treatment team to do collateral. No OP psychiatrist. Contact the hospitalist regarding hospitalist consultation on admission: pending. Trials of Strattera, and Focalin: side effects of agitation and poor appetite Low BMI, lost weight: will order ensure TID. Patient educated on: diagnosis, medication risk/benefits and therapeutic strategies Informed Consent: understands Reason for continued inpatient stay Substantial Risk for: stable for discharge Time Spent With Patient Time: Total time managing care of this patient today ____ minutes.
[2025-09-13 20:00] VITALS: BP 125/87; PULSE 71; TEMP 37.1; O2SAT 98
[2025-09-14 08:00] VITALS: BP 117/67; PULSE 77; RESP 16; TEMP 36.3; O2SAT 98
[2025-09-14] MEDS: guanFACINE HCl ER 1 MG TAB.ER.24H PO (08:32)
[2025-09-14] MEDS: buPROPion HCl XL 150 MG TAB.ER.24H PO (08:32)
--- NOTE | 2025-09-14 08:42 | HO.PSYCHPN ---
Subjective Subjective Date of Service: 09/14/25 Reason For Visit: depression Interim History: Met with patient; discussed with team Met with patient; reports continues to do well, depression gone, anxiety low and feels back to regular self patient feels ready to discharge. Discussed case with patient's father who was also present and agrees that his son is doing well and can return to live with him Mental Status Exam Mental Status Exam Narrative: Pt is alert and oriented; behavior is more social; remains cooperative, friendly and calm; patient is not in distress; dressed in hospital attire, jacob with adequate hygiene and grooming; mood is described as good and affect congruent, brighter and more calm; eye contact appropriate; Speech is normal rate, volume and prosody and not pressured; no psychomotor agitation/retardation present; thought process is organized and goal directed; Thought content is on tx; otherwise pertinent to relevant topics and without any delusional content, paranoid ideations or grandiosity; denies any SI/HI. Denies AVH and there is no evidence of perceptual disturbance. Patients insight and judgment are ntact. Diagnostics Vital Signs (24Hr): Vital Signs - 24 hr 09/13/25 20:00 09/14/25 08:00 Temperature 98.7 F 97.4 F Pulse Rate 71 77 Respiratory Rate 16 Blood Pressure 125/87 117/67 Pulse Oximetry 98 98 Oxygen Delivery Method Room Air Room Air BMI result Body Mass Index 17.6 Labs 09/07/25 13:25 09/07/25 13:25 Medications Medications Current Medications Acetaminophen (Acetaminophen 325 Mg Tablet) 650 mg PO Q6H PRN PRN Reason: Headache/Pain, Scale 1-10 Al Hydroxide/Mg Hydroxide (Magnesium Hydrox/Alum Hydrox 30 Ml Oral.Susp) 30 ml PO Q6H PRN PRN Reason: Heartburn/Nausea Albuterol Sulfate (Albuterol Sulfate 90 Mcg 8 Gm Inhaler) 2 puff INHALE RQ4H PRN PRN Reason: SOB/Wheezing Bupropion HCl (Bupropion Hcl Xl 150 Mg Tab.Er.24h) 150 mg PO DAILY [facility] Last Admin: 09/14/25 08:32 Dose: 150 mg Guanfacine HCl (Guanfacine Hcl Er 1 Mg Tab.Er.24h) 1 mg PO DAILY [facility] Last Admin: 09/14/25 08:32 Dose: 1 mg Hydroxyzine HCl (Hydroxyzine Hcl 25 Mg Tablet) 25 mg PO Q6H PRN PRN Reason: mild anxiety Last Admin: 09/13/25 11:53 Dose: 25 mg Magnesium Hydroxide (Milk Of Magnesia 30 Ml Oral.Susp) 30 ml PO DAILY PRN PRN Reason: Constipation Nicotine Polacrilex (Nicotine Polacrilex 2 Mg Gum) 4 mg BUCCAL Q2H PRN PRN Reason: Nicotine Cravings Trazodone HCl (Trazodone Hcl 50 Mg Tablet) 50 mg PO BEDTIME MRX1 PRN PRN Reason: Insomnia Last Admin: 09/13/25 23:45 Dose: 50 mg Allergies Allergies Allergy/AdvReac Type Severity Reaction Status Date / Time No Known Allergies Allergy Verified 09/07/25 13:06 Assessment & Plan Assessment & Plan (1) MDD (major depressive disorder), recurrent episode, severe: Status: Acute Code(s): F33.2 - Major depressive disorder, recurrent severe without psychotic features (2) JORY (generalized anxiety disorder): Status: Acute Code(s): F41.1 - Generalized anxiety disorder (3) ADHD: Status: Acute Code(s): F90.9 - Attention-deficit hyperactivity disorder, unspecified type (4) Active asthma: Status: Acute Code(s): J45.909 - Unspecified asthma, uncomplicated Plan HPI: patient is a 30y.o with hx of ADHD, and asthma who was BIBA for SI. Patient sent suicidal texts to father stating that he is done with plans to jump off a bridge into the [place] river. Father contacted the police,requested a wellness check. He was found by emergency services [place] leading to the [place]. Formulation/clinical reasoning: Increase in financial burden, living housing situation, and employment. Increase in depression anxiety, SI with plan to kill himself by getting to the river. No prior psychiatric diagnosis except for ADHD. Given the above information, patient could be benefit in restrictive environment for his safety, medication management, and refer patient to outpatient psychiatric services for aftercare Hospital course: 09/08/25: start on Wellbutrin XL 150mg daily for depression/anxiety/ADHD Other PRN available for anxiety and depression. Albuterol Q4hour PRN fo SOB/Wheezing. Patient may benefit from guanfacine/clonidine for anxiety for ADHD/impulsive behavior in the future during hospitalization. 09/09 Patient discussed anxiety and depression. He feels anxiety is most of the issue and he worries about various things throughout the day and even at night; his worries interfere with sleep and also interfere with daytime activities; sometimes his worries about various things will make him not feel like playing guitar. He feels that these worries have led to depression which he said has gotten worse with the past weeks to the point where he sad all the time, in bed, not eating much, calling out from work. This anxiety has also resulted in panic attacks that he was initially worried was chest pain but would emergency room visits ruled this out. Discussed medications at length. Patient has a history of ADHD but did not tolerate Focalin or Strattera; for now he agrees to start on Intuniv since it can also help with anxiety (reviewed risks/side effects). Patient was started on Wellbutrin; while Wellbutrin is not typically used when anxiety is the primary diagnosis patient said he felt more calm today and that maybe it did help with anxiety. He agrees to continue with this now. 09/10 Patient reports that he is feeling better. He thinks the Intuniv is helping and that he is overall feeling more calm; anxiety is lower and no depression; had a good visit with his brother. Patient shared that he was able to read a book which normally his to distracted by ADD symptoms and thus he thinks Intuniv his helping with his ability to felt -continue current treatment for now 09/11 Patient reports he remains feeling better, less anxiety, no depression and able to focus more. Some struggles with sleep but he thinks his discuss his roommate is distracting. Patient talked about wanting to move back with his father's and wanting to quit smoking cannabis. Asked for help to navigate this change 09/12 Patient continues to report that he is good. He is not sure about disposition saying has not talked to his father if he can return there; however patient says he is talking with his brother who will in turn appeal to his father to let patient return. Patient feels that medications are adequate; he expresses thanks for helping him feel comfortable to try medications. 09/13 patient feels that medications remained adequate, does not want any changes; dispo planning Patient remains doing well, good mood, anxiety low, eating and sleeping well. Feels that medications are helpful and wants to continue. Patient feels ready for discharge and is returning to live with his father and twin brother. Patient is not in imminent risk for harm to self or others and appropriate to return to the community for treatment. Request for discharge honored. Plan Admitted to [facility]. CV. Continue Wellbutrin XL 150 mg; consider titrating; if this aggravates anxiety will switch to Zoloft Continue Intuniv 1 mg daily Work with treatment team to do collateral. No OP psychiatrist. Contact the hospitalist regarding hospitalist consultation on admission: pending. Trials of Strattera, and Focalin: side effects of agitation and poor appetite Low BMI, lost weight: will order ensure TID. Patient educated on: diagnosis, medication risk/benefits and therapeutic strategies Informed Consent: understands Reason for continued inpatient stay Substantial Risk for: stable for discharge Time Spent With Patient Time: Total time managing care of this patient today ____ minutes.
[2025-09-14 20:18] VITALS: BP 114/71; PULSE 75; RESP 18; TEMP 37; O2SAT 99
[2025-09-15 08:00] VITALS: BP 107/67; PULSE 72; TEMP 35.9; O2SAT 99
[2025-09-15] MEDS: guanFACINE HCl ER 1 MG TAB.ER.24H PO (08:51)
[2025-09-15] MEDS: buPROPion HCl XL 150 MG TAB.ER.24H PO (08:51)
--- NOTE | 2025-09-15 09:09 | HO.PSYCHPN ---
Subjective Subjective Reason For Visit: depression Mental Status Exam Mental Status Exam Narrative: Appearance: Casually dressed, adequate hygiene and grooming Behavior: Calm and cooperative throughout the interview. Eye contact is appropriate, and there are no signs of psychomotor agitation or retardation Speech: Normal volume and prosody Thought process: Logical and goal-directed Thought content: Future oriented no self-harming thoughts Mood: Euthymic Affect: Mood-congruent SI: Denies HI: Denies VH/AH: None Delusions: None Insight/judgment: Good insight and judgment Memory/cog: Alert, oriented x 4. grossly intact to conversational testing Pt is alert and oriented; behavior is more social; remains cooperative, friendly and calm; patient is not in distress; dressed in hospital attire, jacob with adequate hygiene and grooming; mood is described as good and affect congruent, brighter and more calm; eye contact appropriate; Speech is normal rate, volume and prosody and not pressured; no psychomotor agitation/retardation present; thought process is organized and goal directed; Thought content is on tx; otherwise pertinent to relevant topics and without any delusional content, paranoid ideations or grandiosity; denies any SI/HI. Denies AVH and there is no evidence of perceptual disturbance. Patients insight and judgment appear intact. Diagnostics Vital Signs (24Hr): Vital Signs - 24 hr 09/14/25 20:18 09/15/25 08:00 Temperature 98.6 F 96.7 F L Pulse Rate 75 72 Respiratory Rate 18 Blood Pressure 114/71 107/67 Pulse Oximetry 99 99 Oxygen Delivery Method Room Air Room Air BMI result Body Mass Index 17.6 Labs 09/07/25 13:25 09/07/25 13:25 Medications Medications Current Medications Acetaminophen (Acetaminophen 325 Mg Tablet) 650 mg PO Q6H PRN PRN Reason: Headache/Pain, Scale 1-10 Al Hydroxide/Mg Hydroxide (Magnesium Hydrox/Alum Hydrox 30 Ml Oral.Susp) 30 ml PO Q6H PRN PRN Reason: Heartburn/Nausea Albuterol Sulfate (Albuterol Sulfate 90 Mcg 8 Gm Inhaler) 2 puff INHALE RQ4H PRN PRN Reason: SOB/Wheezing Bupropion HCl (Bupropion Hcl Xl 150 Mg Tab.Er.24h) 150 mg PO DAILY GUZMAN Last Admin: 09/15/25 08:51 Dose: 150 mg Guanfacine HCl (Guanfacine Hcl Er 1 Mg Tab.Er.24h) 1 mg PO DAILY GUZMAN Last Admin: 09/15/25 08:51 Dose: 1 mg Hydroxyzine HCl (Hydroxyzine Hcl 25 Mg Tablet) 25 mg PO Q6H PRN PRN Reason: mild anxiety Last Admin: 09/13/25 11:53 Dose: 25 mg Magnesium Hydroxide (Milk Of Magnesia 30 Ml Oral.Susp) 30 ml PO DAILY PRN PRN Reason: Constipation Nicotine Polacrilex (Nicotine Polacrilex 2 Mg Gum) 4 mg BUCCAL Q2H PRN PRN Reason: Nicotine Cravings Trazodone HCl (Trazodone Hcl 50 Mg Tablet) 50 mg PO BEDTIME MRX1 PRN PRN Reason: Insomnia Last Admin: 09/14/25 22:20 Dose: 50 mg Allergies Allergies Allergy/AdvReac Type Severity Reaction Status Date / Time No Known Allergies Allergy Verified 09/07/25 13:06 Assessment & Plan Assessment & Plan (1) MDD (major depressive disorder), recurrent episode, severe: Status: Acute Code(s): F33.2 - Major depressive disorder, recurrent severe without psychotic features (2) JORY (generalized anxiety disorder): Status: Acute Code(s): F41.1 - Generalized anxiety disorder (3) ADHD: Status: Acute Code(s): F90.9 - Attention-deficit hyperactivity disorder, unspecified type (4) Active asthma: Status: Acute Code(s): J45.909 - Unspecified asthma, uncomplicated Plan HPI: patient is a 30y.o with hx of ADHD, and asthma who was BIBA for SI. Patient sent suicidal texts to father stating that he is done with plans to jump off a bridge into the [place]. Father contacted the police,requested a wellness check. He was found by emergency services [place], [place] leading to the river. Formulation/clinical reasoning: Increase in financial burden, living housing situation, and employment. Increase in depression anxiety, SI with plan to kill himself by getting to the river. No prior psychiatric diagnosis except for ADHD. Given the above information, patient could be benefit in restrictive environment for his safety, medication management, and refer patient to outpatient psychiatric services for aftercare Hospital course: 09/08/25: start on Wellbutrin XL 150mg daily for depression/anxiety/ADHD Other PRN available for anxiety and depression. Albuterol Q4hour PRN fo SOB/Wheezing. Patient may benefit from guanfacine/clonidine for anxiety for ADHD/impulsive behavior in the future during hospitalization. 09/09 Patient discussed anxiety and depression. He feels anxiety is most of the issue and he worries about various things throughout the day and even at night; his worries interfere with sleep and also interfere with daytime activities; sometimes his worries about various things will make him not feel like playing guitar. He feels that these worries have led to depression which he said has gotten worse with the past weeks to the point where he sad all the time, in bed, not eating much, calling out from work. This anxiety has also resulted in panic attacks that he was initially worried was chest pain but would emergency room visits ruled this out. Discussed medications at length. Patient has a history of ADHD but did not tolerate Focalin or Strattera; for now he agrees to start on Intuniv since it can also help with anxiety (reviewed risks/side effects). Patient was started on Wellbutrin; while Wellbutrin is not typically used when anxiety is the primary diagnosis patient said he felt more calm today and that maybe it did help with anxiety. He agrees to continue with this now. 09/10 Patient reports that he is feeling better. He thinks the Intuniv is helping and that he is overall feeling more calm; anxiety is lower and no depression; had a good visit with his brother. Patient shared that he was able to read a book which normally his to distracted by ADD symptoms and thus he thinks Intuniv his helping with his ability to felt -continue current treatment for now 09/11 Patient reports he remains feeling better, less anxiety, no depression and able to focus more. Some struggles with sleep but he thinks his discuss his roommate is distracting. Patient talked about wanting to move back with his father's and wanting to quit smoking cannabis. Asked for help to navigate this change 09/12 Patient continues to report that he is good. He is not sure about disposition saying has not talked to his father if he can return there; however patient says he is talking with his brother who will in turn appeal to his father to let patient return. Patient feels that medications are adequate; he expresses thanks for helping him feel comfortable to try medications. 11/4 patient feels that medications remained adequate, does not want any changes; dispo planning Plan Admitted to [facility]. CV. Continue Wellbutrin XL 150 mg; consider titrating; if this aggravates anxiety will switch to Zoloft Continue Intuniv 1 mg daily Work with treatment team to do collateral. No OP psychiatrist. Contact the hospitalist regarding hospitalist consultation on admission: pending. Trials of Strattera, and Focalin: side effects of agitation and poor appetite Low BMI, lost weight: will order ensure TID. Time Spent With Patient Time: Total time managing care of this patient today ____ minutes.
--- NOTE | 2025-09-15 09:50 | P.DS_ITS ---
DS: Providers Provider Date of Service: 09/15/25 Date of admission: 09/08/25 11:48 Primary care physician: All Platt III, MD Attending physician on admission: John Winston Attending physician on discharge: John Winston DS: Diagnosis Discharge Diagnosis (1) MDD (major depressive disorder), recurrent episode, severe: Status: Acute (2) JORY (generalized anxiety disorder): Status: Acute (3) ADHD: Status: Acute (4) Active asthma: Status: Acute DS: Medications Discharge Medications Home Medications: Previous Rx's ?Medication ?Instructions ?Recorded albuterol sulfate 90 mcg/actuation 2 puff inhalation R Q4H PRN 09/15/25 aerosol inhaler (Ventolin HFA) SOB/Wheezing 30 days #6 .7 grams bupropion HCl 150 mg 24 hr tablet, 150 mg PO DAILY 30 days #30 tabs 09/15/25 extended release guanfacine 1 mg tablet,extended 1 mg PO DAILY 30 days #30 tabs 09/15/25 release 24 hr hydroxyzine HCl 25 mg tablet 25 mg PO Q6H PRN mild anx iety 30 09/15/25 days #60 tabs trazodone 50 mg tablet 50 mg PO BEDTIME PRN Insomni a 30 09/15/25 days #30 tabs Data Data Completed and Pending Completed studies during hospitalization [Text1]: 09/09/25 07:32 Estimat Average Glucose 103 Hemoglobin A1c % 5.2 Triglycerides 64 Cholesterol 160 LDL Cholesterol, Calc 86 HDL Cholesterol 62 Vitamin B12 287 Folate 7.7 TSH 0.09 L Free T4 1.13 DS: Summary Time Spent with Patient Time attestation: Total time managing care of this patient today ____ minutes. Discharge Plan Discharge Anticipated Discharge Date/Time: 09/15/25 11:42 Patient Disposition: Home, Self-Care Discharge Diagnosis: MDD, recurrent, severe without psychosis, in full remission Referrals: [facility] [Other] - 09/19/25 11:00 am Referral Note: Follow-up intake/therapy appointment with Vangie Santa. Once you complete this appointment, you qualify for immediate medication management services. All Platt III, MD [Primary Care Provider, Medical] - 1 Week Discharge Medications: New albuterol sulfate [Ventolin HFA] 90 mcg/actuation Hfa Aerosol Inhaler 2 puff inhalation RQ4H PRN (Reason: SOB/Wheezing) 30 Days Qty: 6.7 0RF guanfacine 1 mg Tablet Extended Release 24 Hr 1 mg PO DAILY 30 Days Qty: 30 1RF bupropion HCl 150 mg Tablet Extended Release 24 Hr 150 mg PO DAILY 30 Days Qty: 30 1RF hydroxyzine HCl 25 mg Tablet 25 mg PO Q6H PRN (Reason: mild anxiety) 30 Days Qty: 60 1RF trazodone 50 mg Tablet 50 mg PO BEDTIME PRN (Reason: Insomnia) 30 Days Qty: 30 1RF Discharge Orders: Discharge Order (Routine); Ordered 09/15/25 Ordered By: John Winston Diet: Regular diet Activity on Discharge: As tolerated Stand Alone Forms: Patient Portal Discharge page Print Language: German Care Plan Goals: Maintain mood and safe behaviors Take medications as prescribed Practice coping skills Continue with outpatient providers and reach out to them as needed Health Concerns: Mood stability and behaviors Sobriety from cannabis Plan of Treatment: Follow up with your PCP, psychiatric provider and other outpatient providers regarding above concerns Take medications as prescribed Assessment: Risk assessment at time of discharge:? Patient was interviewed prior to discharge and found to be fully oriented and without any SI or HI. Patient has improved insight and judgment and wants to continue treatment. Patient is not in imminent risk of harm to self or others and has a safety plan that includes presenting to the closest ER or calling 911 if feeling unsafe.? Patient has been observed closely by nursing and unit staff throughout admission; patient has not engaged in any behaviors that suggest dangerousness to self or others and has demonstrated appropriate behaviors and impulse control
== END 2025-09-15 11:04 | disposition home or self-care (01) | DRG 751 ==
LOC: HO.ED 13:46 → HO.PM5 09-08 11:49
PROVIDERS: Admitting Provider Clinical Nurse Specialist Psychiatric/Mental Health, Adult; Emergency Provider Emergency Medicine; PCP Internal Medicine; Visit Provider Psychiatry & Neurology Psychiatry
DX: F33.2 Major depressive disorder, recurrent severe without psychotic features (principal); R45.851 Suicidal ideations; F41.1 Generalized anxiety disorder; F90.9 Attention-deficit hyperactivity disorder, unspecified type; J45.909 Unspecified asthma, uncomplicated; Z87.891 Personal history of nicotine dependence; Z79.899 Other long term (current) drug therapy
CPT/HCPCS: 36415; 80053; 80061; 80307; 81003; 82607; 82746; 83036; 84439; 84443; 85025; 93005; 99285

== ENCOUNTER → 2025-09-08 09:47 | Outpatient (BNV) | payer OTHER, SELFPAY | PROVIDERS: Admitting Provider Clinical Nurse Specialist Psychiatric/Mental Health, Adult; Emergency Provider Emergency Medicine; PCP Internal Medicine; Visit Provider Internal Medicine | DX: Z13.6 Encounter for screening for cardiovascular disorders (principal) | CPT/HCPCS: 93010 ==

== ENCOUNTER → 2025-09-08 11:48 | Outpatient (BNV) | payer OTHER, SELFPAY | PROVIDERS: Admitting Provider Clinical Nurse Specialist Psychiatric/Mental Health, Adult; Emergency Provider Emergency Medicine; PCP Internal Medicine; Visit Provider Psychiatry & Neurology Psychiatry | DX: F33.2 Major depressive disorder, recurrent severe without psychotic features (principal); F41.1 Generalized anxiety disorder; F90.9 Attention-deficit hyperactivity disorder, unspecified type; J45.909 Unspecified asthma, uncomplicated | CPT/HCPCS: 90792; 99231; 99232 ==

== ENCOUNTER → 2025-09-08 11:48 | Outpatient (BNV) | payer OTHER, SELFPAY | PROVIDERS: Admitting Provider Clinical Nurse Specialist Psychiatric/Mental Health, Adult; Emergency Provider Emergency Medicine; PCP Internal Medicine; Visit Provider Nurse Practitioner Family | DX: J45.909 Unspecified asthma, uncomplicated (principal) | CPT/HCPCS: 99221 ==